=== PATIENT | female | born 1945 | race Caucasian/White ===

== ENCOUNTER → 2020-09-07 10:55 | Outpatient (CLI) | payer MEDICARE, MEDICAID, SELFPAY ==
[2020-09-07 11:43] LABS: Basophils # 0.1 K/mm3 (0-0.2); Basophils % 0.8 % (0.1-2.0); Eosinophils # 0.2 K/mm3 (0.0-0.4); Eosinophils % 3.6 % (0.1-12.0); Hematocrit 31.1 % (37.0-47.0); Lymphocytes # 1.1 K/mm3 (0.7-4.5); Lymphocytes % 18.1 % (10-50); Mean Corpuscular HGB Conc 28.9 g/dL (31.8-35.4); Mean Corpuscular Volume 86.4 fl (81-99); Mean Platelet Volume 8.4 fl (7.4-10.4); Monocytes # 0.4 K/mm3 (0.1-1.0); Monocytes % 7.2 % (1.7-9.3); Neutrophils # 4.1 K/mm3 (1.8-7.8); Neutrophils % 70.2 % (37.0-80.0); Platelet Count 417 K/mm3 (142-424); Red Cell Distribution Width 17.8 % (11.5-17.5); White Blood Count 5.9 K/mm3 (4.8-10.8)
[2020-09-07 12:28] LABS: Alanine Aminotransferase 18 U/L (12-78); Albumin Level 3.3 g/dl (3.5-5.0); Albumin/Globulin Ratio 0.9 (1.1-1.8); Alkaline Phosphatase 149 U/L (38-126); Anion Gap 13.3 mEq/L (5-15); Aspartate Amino Transferase 26 U/L (14-36); Bilirubin,Total 0.3 mg/dl (0.2-1.3); Blood Urea Nitrogen 14 mg/dl (7-17); Calcium 9.4 mg/dl (8.4-10.2); Carbon Dioxide 30 mmol/L (22.0-30.0); Chloride 99 mmol/L (98-107); Estimated Glomerular Filt Rate 82 ml/min (>60); GFR (African American) 99 ML/MIN (>60); Globulin 3.7 g/dL (1.3-3.2); Glucose 107 mg/dl (74-100); Lipase 104 U/L (23-300); Potassium 3.3 mmoL/L (3.5-5.1); Sodium 139 mmol/L (136-145)
== END ==
PROVIDERS: Visit Provider Family Medicine
DX: R10.9 Unspecified abdominal pain (principal); R63.4 Abnormal weight loss
CPT/HCPCS: 36415; 80053; 83690; 84443; 85025

== ENCOUNTER → 2020-09-17 12:22 | Outpatient (CLI) | payer MEDICARE, MEDICAID, SELFPAY ==
--- NOTE | 2020-09-17 12:27 | CT_ITS ---
PROCEDURE: CT ABDOMEN PELVIS WO CON CLINICAL INDICATION: abd pain Drainage around feeding tube COMPARISON: No exams were available for comparison TECHNIQUE: Axial images obtained with sagittal and coronal reformats. All CT scans at the facility use one or more dose reduction, viz: automated exposure control, ma/kV adjustment per patient size (including targeted exams where dose is matched to indication, i.e. head), or iterative reconstruction technique. FINDINGS: LOWER THORAX: There is a small right pleural effusion with consolidation/volume loss in the right lung base with air bronchograms. There is also some atelectatic or fibrotic change in the right middle lobe along the major fissure inferiorly. Patchy ground-glass attenuation noted in the left lower lobe with some minimal atelectatic or fibrotic changes. ABDOMEN & PELVIS: The liver, spleen, and right adrenal gland are unremarkable. There is some thickening of the left adrenal gland which is nonspecific. The gallbladder, pancreas, and kidneys have an unremarkable unenhanced appearance. There are few small periaortic lymph nodes. A PEG tube catheter is present. The tip is in the region of the body of the stomach. No abnormal fluid collections are evident around the catheter. Nonspecific bowel gas pattern. The urinary bladder is mildly distended with some minimal thickening of the wall superiorly. There is a mild amount of retained colonic feces in the rectum. There are post hysterectomy changes. There is degenerative disc disease at L5-S1. There is some faint haziness of the fat in the pelvis. This is nonspecific. There is an epidural stimulator device present at the T10-T11 region. IMPRESSION: 1. Peg tube catheter present. No evidence of abnormal fluid collection around the catheter. The catheter is in good position. 2. Right-sided pleural effusion with right lower lobe consolidation/volume loss with atelectasis or fibrosis in the right middle lobe in faint ground-glass attenuation in the left lower lobe which is nonspecific and could be inflammatory or infectious. 3. Other nonspecific findings as described above. Dictated by: Kevin Salter MD 09/18/2020 08:41 Kevin Salter MD in [place] 09/18/2020 08:41
== END ==
PROVIDERS: PCP Family Medicine; Visit Provider Family Medicine
DX: R10.9 Unspecified abdominal pain (principal)
CPT/HCPCS: 74176

== ENCOUNTER → 2021-03-24 13:21 | Outpatient (CLI) | payer MEDICARE, MEDICAID, SELFPAY ==
[2021-03-24 13:43] LABS: Basophils # 0.1 K/mm3 (0-0.2); Eosinophils # 0.2 K/mm3 (0.0-0.4); Eosinophils % 5.1 % (0.1-12.0); Hematocrit 32.9 % (37.0-47.0); Hemoglobin 10.2 g/dL (12.2-16.2); Lymphocytes # 1.1 K/mm3 (0.7-4.5); Lymphocytes % 23.5 % (10-50); Mean Corpuscular HGB Conc 31.1 g/dL (31.8-35.4); Mean Corpuscular Hemoglobin 29.5 pg (27.0-31.2); Mean Corpuscular Volume 94.9 fl (81-99); Mean Platelet Volume 10.7 fl (7.4-10.4); Monocytes # 0.3 K/mm3 (0.1-1.0); Monocytes % 6.1 % (1.7-9.3); Neutrophils # 3.1 K/mm3 (1.8-7.8); Neutrophils % 64.4 % (37.0-80.0); Platelet Count 261 K/mm3 (142-424); Red Blood Count 3.46 M/mm3 (4.20-5.40); Red Cell Distribution Width 17.2 % (11.5-17.5); White Blood Count 4.8 K/mm3 (4.8-10.8)
[2021-03-24 13:52] LABS: Alanine Aminotransferase 13 U/L (12-78); Albumin Level 3.7 g/dl (3.5-5.0); Albumin/Globulin Ratio 1.1 (1.1-1.8); Alkaline Phosphatase 147 U/L (38-126); Anion Gap 10.9 mEq/L (5-15); Aspartate Amino Transferase 27 U/L (14-36); Bilirubin,Total 0.3 mg/dl (0.2-1.3); Blood Urea Nitrogen 17 mg/dl (7-17); Calcium 9.6 mg/dl (8.4-10.2); Carbon Dioxide 32 mmol/L (22.0-30.0); Chloride 101 mmol/L (98-107); Estimated Glomerular Filt Rate 61 ml/min (>60); GFR (African American) 74 ML/MIN (>60); Globulin 3.3 g/dL (1.3-3.2); Glucose 80 mg/dl (74-100); HDL Cholesterol 62 mg/dl (40-60); Potassium 3.9 mmoL/L (3.5-5.1); Sodium 140 mmol/L (136-145)
[2021-03-24 14:04] LABS: Direct LDL Cholesterol 64.52 mg/dL (100-129)
[2021-03-24 14:09] LABS: T4 (Thyroxine) 8.2 ug/dl (5.53-11.0)
[2021-03-24 14:23] LABS: Thyroid Stimulating Hormone 7.93 uIU/mL (0.465-4.68)
[2021-03-24 14:55] LABS: Chol/HDL Ratio 2.8 (1-3.5); Cholesterol 173 mg/dl (140-200); Triglycerides 101 mg/dl (30-150); VLDL Cholesterol 20 mg/dL (0-40)
== END ==
PROVIDERS: Visit Provider Family Medicine
DX: E78.5 Hyperlipidemia, unspecified (principal); R63.4 Abnormal weight loss; Z79.899 Other long term (current) drug therapy
CPT/HCPCS: 80053; 80061; 84436; 84443; 85025

== ENCOUNTER → 2021-04-29 13:38 | Outpatient (CLI) | payer MEDICARE, MEDICAID, SELFPAY ==
[2021-04-29 13:54] LABS: Basophils # 0.1 K/mm3 (0-0.2); Basophils % 1.5 % (0.1-2.0); Eosinophils # 0.3 K/mm3 (0.0-0.4); Eosinophils % 6.5 % (0.1-12.0); Hematocrit 35.5 % (37.0-47.0); Hemoglobin 11.6 g/dL (12.2-16.2); Lymphocytes % 24.1 % (10-50); Mean Corpuscular HGB Conc 32.7 g/dL (31.8-35.4); Mean Corpuscular Hemoglobin 30.5 pg (27.0-31.2); Mean Corpuscular Volume 93.5 fl (81-99); Mean Platelet Volume 9.5 fl (7.4-10.4); Monocytes # 0.3 K/mm3 (0.1-1.0); Monocytes % 7.8 % (1.7-9.3); Neutrophils # 2.4 K/mm3 (1.8-7.8); Neutrophils % 60.1 % (37.0-80.0); Platelet Count 253 K/mm3 (142-424); Red Cell Distribution Width 15.3 % (11.5-17.5)
[2021-04-29 14:21] LABS: T4 (Thyroxine) 8.1 ug/dl (5.53-11.0)
[2021-04-29 14:34] LABS: Thyroid Stimulating Hormone 2.48 uIU/mL (0.465-4.68)
[2021-05-02 16:43] LABS: Prealbumin 19 mg/dL (9-32)
== END ==
PROVIDERS: Visit Provider Family Medicine
DX: R63.4 Abnormal weight loss (principal)
CPT/HCPCS: 84134; 84436; 84443; 85025

== ENCOUNTER → 2021-06-06 08:46 | Outpatient (POV) | payer MEDICARE, MEDICAID, SELFPAY | PROVIDERS: Visit Provider Otolaryngology | DX: Z00.00 Encounter for general adult medical examination without abnormal findings (principal) ==

== ENCOUNTER 2021-06-16 10:43 | Observation (INO) | payer MEDICARE, MEDICAID, SELFPAY ==
[2021-06-16] VITALS (18 sets, daily range): BP systolic 88–143; BP diastolic 50–76; PULSE 61–76; RESP 14–20; TEMP 36.9; O2SAT 96–100; BMI 16.7; BMI 17.2
--- NOTE | 2021-06-16 | IR_ITS ---
APPROVED REPORT Patient Location: Outpatient Custom Motorcycle Painter: LANCE Harrison RT (R) PROCEDURES Left heart catheterization Left ventriculogram Selective coronary angiogram INDICATION Unstable angina, Coronary artery disease as seen by chest x-ray Informed consent was obtained prior to the procedure. COMPLICATIONS None Estimated Blood Loss: Less than 10 mls TECHNIQUE One percent lidocaine used to anesthetize the right anterior aspect of the wrist. The right radial artery was accessed via the Seldinger technique. A 6 [place] sheath was placed in the right radial artery. 2.5 mg of verapamil, 800 mcg of nitroglycerin, 1mg Lidocaine and 5000 U Heparin were given through the arterial sheath. The trap catheter was also used to perform left heart catheterization, left ventriculogram and selective coronary angiogram. At the end of the procedure the sheath was removed good hemostasis was achieved using Traclet band, patient was transferred to the postop holding area in stable condition. ANGIOGRAPHIC RESULTS The left main artery Normal The left anterior descending artery Is widely patent in the proximal segment with concentric 20% stenosis both proximally and in the midsegment. Of interest there is significant extraluminal calcification with no significant encroachment on the intraluminal diameter The circumflex artery Nondominant with extensive extraluminal calcification with intraluminal 10 to 20% mild luminal irregularities The right coronary artery Is a large dominant vessel also with proximal and mid vessel extraluminal calcification. There is a long 30 to 40% smooth stenosis throughout the mid segment all of which is nonflow limiting The GARRIDO ventriculogram reveals Normal to hyperdynamic at 70% The left ventricular end-diastolic pressure 10 mmHg IMPRESSION Mild nonflow limiting coronary disease as described above with impressive and significant extraluminal coronary artery calcifications which are nonflow limiting and clinically insignificant at this time Hyperdynamic ventricle Normal left ventricular and SI pressure PLAN 1. Medical management 2. Patient chest pain is noncardiac in etiology Electronically signed by : Gregory Mi, 06/16/2021 14:21:24
--- NOTE | 2021-06-16 10:52 | ECG_ITS ---
APPROVED REPORT Exam: Resting ECG HR:73 bpm ECG Measurements Heart Rate 73 AXES CO 146 P 67 QRSd 64 QRS 13 QT 380 T 69 QTc 418 Conclusion Normal sinus rhythm Low voltage QRS Isolated nonsignificant Q in III noted Abnormal ECG Electronically signed by : Maksim Montana, 06/18/2021 15:25:38
--- NOTE | 2021-06-16 11:04 | XR_ITS ---
PROCEDURE: XR CHEST 2V CLINICAL HISTORY: soa COMPARISON: CT CT ABDOMEN PELVIS WO CON from 09/17/2020 FINDINGS: Focal soft tissue density is noted projecting over the right lower zone. Small right pleural effusion is noted. Hyperexpanded lungs. No other lobar consolidation or pneumothorax. Cardiac size and central pulmonary vasculature is within normal limits. Degenerative changes of the visualized thoracic spine. Right internal jugular Port-A-Cath with its tip in the superior vena cava is noted. Neural stimulator device lead tips are noted at the midthoracic spine. IMPRESSION: Focal soft tissue masslike density is noted in the right lower zone. This may represent subsegmental consolidation but lung neoplasm should be considered. No prior imaging is available for comparison. CT scan of the thorax with contrast is recommended for further evaluation if no prior history of lung neoplasm. Dictated by: Tri Frias 06/16/2021 11:52 Tri Frias in [facility] 06/16/2021 11:52
[2021-06-16 11:12] LABS: Basophils # 0.1 K/mm3 (0-0.2); Basophils % 1.2 % (0.1-2.0); Eosinophils # 0.1 K/mm3 (0.0-0.4); Eosinophils % 2.7 % (0.1-12.0); Hematocrit 35.7 % (37.0-47.0); Hemoglobin 11.1 g/dL (12.2-16.2); Lymphocytes # 0.7 K/mm3 (0.7-4.5); Lymphocytes % 15.2 % (10-50); Mean Corpuscular HGB Conc 31.1 g/dL (31.8-35.4); Mean Corpuscular Hemoglobin 29.7 pg (27.0-31.2); Mean Corpuscular Volume 95.5 fl (81-99); Mean Platelet Volume 8.1 fl (7.4-10.4); Monocytes # 0.3 K/mm3 (0.1-1.0); Monocytes % 5.8 % (1.7-9.3); Neutrophils # 3.4 K/mm3 (1.8-7.8); Neutrophils % 75.1 % (37.0-80.0); Platelet Count 220 K/mm3 (142-424); Red Blood Count 3.74 M/mm3 (4.20-5.40); Red Cell Distribution Width 15.7 % (11.5-17.5); White Blood Count 4.5 K/mm3 (4.8-10.8)
--- NOTE | 2021-06-16 11:14 | PC.NURSE ---
Pt to rad at this time.
--- NOTE | 2021-06-16 11:18 | PC.NURSE ---
Pt to x-ray via wheelchair at this time.
[2021-06-16 11:19] LABS: Anion Gap 13.1 mEq/L (5-15); Blood Urea Nitrogen 23 mg/dl (7-17); Calcium 9.5 mg/dl (8.4-10.2); Carbon Dioxide 33 mmol/L (22.0-30.0); Chloride 101 mmol/L (98-107); Creatinine Clearance Estimated 37 mL/min (50-200); Estimated Glomerular Filt Rate 70 ml/min (>60); GFR (African American) 85 ML/MIN (>60); Glucose 85 mg/dl (74-100); Potassium 4.1 mmoL/L (3.5-5.1); Sodium 143 mmol/L (136-145)
[2021-06-16 11:31] LABS: Activated Partial Thrombo Time 25.9 seconds (22.8-30.6); Prothrombin Time 11.2 seconds (10.1-12.5)
[2021-06-16 11:32] LABS: INR 0.95 (0.9-1.1)
[2021-06-16 11:36] LABS: Troponin I 0.01 ng/ml (0.00-0.034)
[2021-06-16 11:40] LABS: NT Pro Brain Natriuretic Pep. 296 pg/mL (0-125)
--- NOTE | 2021-06-16 12:16 | HMH.EDGENADL ---
ED Disposition Clinical Impression: Abnormal EKG, Shortness of breath, Coronary artery calcification Right lower lobe pneumonia Qualifiers: Pneumonia type: due to unspecified organism Qualified Code(s): J18.9 - Pneumonia, unspecified organism Disposition: Admitted As Inpatient Condition on Discharge: Fair Referrals: Andrew Quigley MD [Primary Care Provider] - - Critical Care Critical Care Time: No Attestation: On 06/16/21, the high probability of a clinically significant, sudden or life threatening deterioration of the following system(s) required my full and direct attention, intervention and personal management. The time I documented below is in addition to time spent performing reported procedures but includes the following listed in this critical care notation. Medical Decision Making - Medical Records Medical records reviewed: Yes: I reviewed the patient's medical records. - Jose Elias Inquiry Pt receiving controlled substance: No Vital Signs: 06/16/21 10:44 06/16/21 11:30 06/16/21 12:16 Temperature 98.4 F Temperature Source Oral Pulse Rate 68 71 Pulse Rate [Right] 74 Respiratory Rate 18 18 Blood Pressure 142/70 H 116/63 Blood Pressure [Right Arm] 143/62 H Blood Pressure Mean 94 81 Blood Pressure Mean [Right Arm] 89 02 Sat by Pulse Oximetry 100 99 97 Oxygen Delivery Method Room Air 06/16/21 12:58 Temperature Temperature Source Pulse Rate 69 Pulse Rate [Right] Respiratory Rate 20 Blood Pressure 124/63 Blood Pressure [Right Arm] Blood Pressure Mean 83 Blood Pressure Mean [Right Arm] 02 Sat by Pulse Oximetry 99 Oxygen Delivery Method - Lab Data Lab Results 06/16/21 11:03: WBC 4.5 L, RBC 3.74 L, Hgb 11.1 L, Hct 35.7 L, MCV 95.5, MCH 29.7, MCHC 31.1 L, RDW 15.7, Plt Count 220, MPV 8.1, Neut % (Auto) 75.1, Lymph % (Auto) 15.2, Whitfield % (Auto) 5.8, Eos % (Auto) 2.7, Baso % (Auto) 1.2, Neut # (Auto) 3.4, Lymph # (Auto) 0.7, Whitfield # (Auto) 0.3, Eos # (Auto) 0.1, Baso # (Auto) 0.1 06/16/21 11:03: Sodium 143, Potassium 4.1, Chloride 101, Carbon Dioxide 33 H, Anion Gap 13.1, BUN 23 H, Creatinine 0.80, Estimated Creat Clear 37, Estimated GFR 70, Est GFR ( Amer) 85, Glucose 85, Calcium 9.5, Troponin I 0.01 06/16/21 11:03: PT 11.2, INR 0.95, APTT 25.9 06/16/21 11:03: NT-Pro-B Natriuret Pep 296 H Result diagrams: 06/16/21 11:03 06/16/21 11:03 Orders (Tests/Meds): ED MEDICATIONS Discontinued Medications Generic Name Dose Route Start Last Admin Trade Name Freq PRN Reason Stop Dose Admin Diphenhydramine HCl 50 mg 06/16/21 13:21 Diphenhydramine 50mg/Ml Vial IV 06/16/21 13:22 ONCE ONE ORDERS Category Date Time Status Troponin I Q3H Lab 06/16/21 12:59 Received Troponin I Q3H Lab 06/16/21 17:15 Ordered - Radiology Data #1 Image(s): Chest Image Reviewed: Yes I reviewed the patient's radiology results, Yes I reviewed the patient's radiology image, Yes I have reviewed radiologist's interpretation IMPRESSION: Focal soft tissue masslike density is noted in the right lower zone. This may represent subsegmental consolidation but lung neoplasm should be considered. No prior imaging is available for comparison. CT scan of the thorax with contrast is recommended for further evaluation if no prior history of lung neoplasm. - ECG Data Tracing #1 No ventricular rate is 73 bpm, normal NE interval, normal QTC. Sinus rhythm with nonspecific ST changes. ECG initial impression date: 06/16/21 ECG initial impression time: 10:52 - Reevaluation(s) Time: 13:29 Reevaluation #1: On reevaluation, patient is feeling better. Cardiology did evaluate the patient. They have arranged for the patient to obtain cardiac catheterization given her significant coronary calcifications and intermittent chest pain. Patient be admitted to hospital for further evaluation and treatment. - KALI Score for Non-Stemi Age of Patient: 70-79 years old Hear
--- NOTE | 2021-06-16 13:09 | PC.NURSE ---
cardiology MACHINE ADJUSTER LEADER at bedside.
--- NOTE | 2021-06-16 13:19 | PC.NURSE ---
Dr Welch speaking with Dr Quigley
--- NOTE | 2021-06-16 13:22 | CA_ITS ---
APPROVED REPORT EXAM: Comprehensive 2D, Doppler, and color-flow Echocardiogram Historical Records Administrator: Kenyetta Romero RVT Ht: 5 ft 6 in Wt: 104lbs BSA: 1.51 BP: 143/62 mmHg Indications: ANGINA,HTN,SOA,EX SMOKER,HLD,HC SUPRAGLOTTIC CANCER WITH PRIOR CHEMO,ABN EKG,HOME 02 TDS-PT FLAT ON BACK POST CATH 2D Dimensions LVOT 2.07 cm (M/F) 1.5-2.5 M-Mode Dimensions RVDd 2.79 cm (0.9-2.6) LA Diam 2.56 cm (1.9-4.0) LVDd 3.51 cm (3.5-5.7) Ao Diam 2.87 cm (2.0-3.7) LVDs 2.01 cm (3.5-5.7) IVSd 0.69 cm (0.6-1.1) PWd 0.94 cm (0.6-1.1) EF (Teich) 74.80% FS 42.70% EDV (Teich) 51.20 mL ESV (Teich) 12.90 mL LV Diastology E Decel Time 363.00 (160-240 msec) E/A Ratio 1.2 Aortic Valve AO Peak GR. 3.40 mmHg Mitral Valve MV E Max Luis. 111.00 (40-130 cm/s) MV A Velocity 94.00 (40-130 cm/s) E/A Ratio 1.18 MV Decel. Time 363.00 (160-240 ms) MV PHT 106.00 ms Pulmonary Valve PV Peak Velocity 87.00 (50-150 cm/s) Tricuspid Valve TR P. Velocity 249.00 cm/s RAP Estimate 10.00 mmHg RVSP 34.80 mmHg Left Ventricle Technically difficult study. Left atrium is mildly enlarged, left ventricle is normal size, visually estimated ejection fraction 55% with no regional wall motion abnormality, diastolic parameters are inconclusive. Right Ventricle Right atrium and right ventricle mildly enlarged with normal contractility. Aortic Valve Aortic valve is thickened and calcified without aortic stenosis or aortic insufficiency. Mitral Valve Mitral valve has dense mitral annular calcification which extends in both anterior and posterior mitral leaflet. There is no mitral stenosis, there is mild mitral regurgitation. Tricuspid Valve Tricuspid valve grossly normal, there is moderate tricuspid regurgitation, calculated right ventricular systolic pressure 35 mmHg. Pulmonic Valve Pulmonic valve is poorly visualized. Great Vessels Aortic root is normal size. Pericardium No significant pericardial effusion noted. Conclusion 1. Biatrial enlargement, normal left ventricular size, mild concentric left ventricular hypertrophy, visually estimated ejection fraction 55% with no regional wall motion abnormality, diastolic parameters are inconclusive. 2. Mildly enlarged right ventricle with normal contractility. 3. Thickened and calcified aortic valve without aortic stenosis or aortic insufficiency. 4. Mild mitral and moderate tricuspid regurgitation, calculated right ventricular systolic pressure 35 mmHg. 5. No significant pericardial effusion noted. Electronically signed by : Raymond Lux, 06/16/2021 15:58:31
--- NOTE | 2021-06-16 13:23 | HMH.CNCARD ---
History of Present Illness Consult date: 06/16/21 Requesting physician: Markus Welch Consult reason: chest pain Chief complaint: chest pain History of present illness: This is a 75-year-old white female who presented to the emergency department with complaints of chest pain. The patient states that approximately 2 days ago she started having a substernal chest pressure. The patient states that it feels like a heavy piece of iron is sitting on her chest. She states that this radiates to her bilateral arms and causes numbness. The patient states it is associated with shortness of breath and nausea as well as diaphoresis. She states that this is severe and sometimes she feels like she is gasping for breath because her chest pain is so bad. The patient states that this occurs intermittently and occurs at rest and with exertion. Nothing really helps to improve the pain. She states that she is on home oxygen and the whole oxygen was not helping with the pain or her shortness of breath. She states that she has never experienced symptoms like this before. 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 She denies any fever, chills, vomiting, diarrhea, PND or orthopnea. [facility] History I have reviewed the patient's past medical history: Yes Medical History: Reports:: Anxiety, Asthma, Depression, Hyperlipidemia, Hypertension *Have you ever received a pneumonia vaccine?: Yes *Have you received a flu vaccine this season?: No - *Social History Smoking Status: Former smoker # Packs/Day (cigarettes): 5 Alcohol Intake: former *Occupational Status:: retired, disabled Household Members: none *Travel in the last 8 weeks: None - Psychiatric History Pschychiatric History:: Reports:: Anxiety, Depression Family Hx:: No significant family history Meds Home Medications Medication Instructions Recorded Confirmed Type cholestyramine (with sugar) 4 gram 4 g PO BID PRN #30 each 05/26/20 06/16/21 Rx powder for susp in a packet albuterol sulfate 90 mcg/actuation 2 inh INHALATION Q4-6H PRN #1 each 09/07/20 06/16/21 Rx breath activated powder inhaler celecoxib 200 mg capsule 200 mg PO DAILY #90 cap 09/07/20 06/16/21 Rx cyanocobalamin (vitamin B-12) 1,000 mcg IM QMONTH #100 ml 09/07/20 06/16/21 Rx 1,000 mcg/mL injection solution nitrofurantoin macrocrystal 50 mg 50 mg PO QHS #90 cap 09/07/20 06/16/21 Rx capsule quetiapine 25 mg tablet 25 mg PO BID #180 tab 09/07/20 06/16/21 Rx sertraline 20 mg/mL oral 20 mg PO DAILY #60 ml 09/07/20 06/16/21 Rx concentrate pantoprazole 40 mg tablet,delayed 40 mg PO DAILY #30 tab 09/10/20 06/16/21 Rx release atorvastatin 40 mg tablet 40 mg PO DAILY #90 tab 09/20/20 06/16/21 Rx aspirin 81 mg tablet,delayed 81 mg PO DAILY 03/24/21 06/16/21 History release diaper,brief,adult,disposable See Rx Instructions .ROUTE 03/24/21 06/16/21 Rx .MEDSUPPLY #96 each dicyclomine 10 mg capsule 10 mg PO DAILY cap 03/24/21 06/16/21 History donepezil 10 mg tablet 10 mg PO DAILY 03/24/21 06/16/21 History guar gum 1 tbsp PO TID PRN #820 g 03/24/21 06/16/21 Rx levothyroxine 88 mcg capsule 88 mcg PO DAILY #90 cap 03/25/21 06/16/21 Rx diphenoxylate-atropine 2.5 1 tab PO BID PRN #60 tab 04/07/21 06/16/21 Rx mg-0.025 mg tablet alendronate 35 mg tablet 35 mg PO WEEKLY #14 tab 04/29/21 06/16/21 Rx ergocalciferol (vitamin D2) 1,250 1,250 mcg PO QWEEK #7 cap 04/29/21 06/16/21 Rx mcg (50,000 unit) capsule ondansetron HCl 4 mg tablet 4 mg PO Q6H PRN #30 tab 04/29/21 06/16/21 Rx diazepam 5 mg/5 mL (1 mg/mL) oral 5 mg PO BID #300 ml 06/16/21 06/16/21 Rx solution levofloxacin 500 mg tablet 500 mg PO DAILY 10 Days #10 tab 06/16/21 06/16/21 Rx nystatin 100,000 unit/mL oral 5 ml BUCCAL QID #500 ml 06/16/21 06/16/21 Rx suspension oxycodone 5 mg/5 mL oral solution 5 mg PO Q4H PRN #473 ml 06/16/21 06/16/21 Rx pantoprazole 40 mg granules 40 mg PO DAILY #30 each 06/16/21
--- NOTE | 2021-06-16 13:27 | PC.NURSE ---
Cardiac cath consent signed, pt in gown only, belongings given to at bedside.
--- NOTE | 2021-06-16 13:32 | PC.NURSE ---
Marisol Troy RN here to take pt to dental laboratory technician apprentice.
[2021-06-16 13:36] LABS: Troponin I < 0.01 ng/ml (0.00-0.034)
--- NOTE | 2021-06-16 14:00 | PC.NURSE ---
Report called to Ronnie NAIR.
--- NOTE | 2021-06-16 15:53 | PC.NURSE ---
1530 - REPORT RECEIVED FORM JOANIE SALAZAR
--- NOTE | 2021-06-16 17:44 | PC.NURSE ---
Radial band removed as follow: 1615 - 2ML REMOVED 1630 - 2ML REMOVED 1645 - 2ML REMOVED 1700 - 2ML REMOVED 1715 - 2ML REMOVED 1730 - 2ML REMOVED 1744 - RADIAL BAND REMOVED; TELFA AND TEGADERM PLACED; NO S/S OF HEMATOMA; PT TOLERATED WELL; DR ACEVEDO AT BEDSIDE
--- NOTE | 2021-06-16 17:47 | HMH.HPDC ---
General - General Admission date:: 06/16/21 Discharge date: 06/16/21 *Admission Date: 06/16/21 *Chief complaint: chest pain *History of present illness: Patient is a 75-year-old white female, known to me from the office. Patient has a history of a supraglottic neoplasm, was seen in consultation by Dr. Deluna at the [facility]. She underwent a sequence of external beam radiation to the neck. No surgery was performed. She is followed by an ENT in [place], Dr. Sanford, who has expressed concern over recurrence of the neoplasm. Further work-up is underway. She has extensive skin changes, thickening, from the XRT and I am unable to palpate any masses in the neck. My understanding is that she is slated for a PET scan in the near future. Patient is followed by a access developer in [facility], . He performed a CT lung cancer screening on 06/08/2021. Showed development of a new masslike opacity in the right lower lobe abutting the pleural surface with some air bronchograms. It measures 15 mm x 40 mm x 46 mm. It has both masslike appearance as well as an infiltrative appearance. The margins are ill-defined. Patient presented to my office earlier this morning with complaints of cough, scant purulence and substernal chest pain. Her CT was reviewed, and in the office she was given 1 g of Rocephin and 500 mg p.o. Levaquin daily was called in for 10 days. Patient had also reported a 7-hour sewed of substernal chest pain on Sunday night. She felt the pain radiated into her neck, and this was associated with a sensation of numbness in both upper extremities. It was noted on the previous CAT scan that her coronary arteries were heavily calcified. He was also found to have cardiomegaly. As we spoke the patient expressed significant concern about the substernal chest pain and felt that she may have had a coronary event. She was sent to the cardiology office for further evaluation, subsequently sent to the Spa Experience Coordinator. Troponins were negative, her chest film showed an a process in the right lower lobe. Dr. Mi was kind enough to see and evaluate the patient for us. [facility] History Medical History: Reports:: Anxiety, Asthma, Cancer (NECK), Depression, Hyperlipidemia, Hypertension Denies:: Diabetes Mellitus Type 1, Diabetes Mellitus Type 2, Internal Pacemaker *Have you ever received a pneumonia vaccine?: Yes *Have you received a flu vaccine this season?: Yes Other Medical History: Reports: Arthritis, Chemotherapy, Radiation Therapy Other Surgeries: Yes: Cardiac Catheterization. No: Pacemaker - *Social History Smoking Status: Former smoker Tobacco Type: cigarettes # Packs/Day (cigarettes): 5 Alcohol Intake: former *Occupational Status:: disabled Household Members: spouse *Travel in the last 8 weeks: None - Psychiatric History Pschychiatric History:: Reports:: Anxiety, Depression Family Hx:: No significant family history Review of Systems - Constitutional Reports anorexia, Reports lack of energy - Eyes Denies change in vision - ENT Reports difficulty swallowing, Reports hoarseness, Denies abnormal hearing - *Cardiovascular Reports chest pain, Reports shortness of breath - *Respiratory Reports change in phlegm color - *Gastrointestinal Reports difficulty swallowing, Denies abdominal pain, Denies heartburn - *Genitourinary Denies painful urination - *Musculoskeletal Reports joint pain, Reports decreased muscle mass, Reports muscle weakness - Integumentary/Breasts Reports other, Denies yellowing of the skin Comments: xrt changes - *Neurologic Reports weakness, Denies headache(s) - Psychiatric Reports lack of enjoyment - Endocrine Denies cold intolerance, Denies excessive sweating, Denies increased hunger - Hematologic/Lymphatic Denies easy bleeding - Allergic/Immunologic Denies hives Exam Vital signs and Labs for Last 24 Hours: Temp Pulse Resp BP Pulse Ox 98.4 F 64
--- NOTE | 2021-06-16 18:26 | PC.NURSE ---
PT WAS D/C AT 182
== END 2021-06-16 18:25 | disposition home or self-care (01) ==
LOC: ER 13:32 → CATHLAB 13:35 → 2ND 13:54
PROVIDERS: Admitting Provider Family Medicine; Emergency Provider Emergency Medicine; PCP Family Medicine; Visit Provider Internal Medicine
DX: I25.110 Atherosclerotic heart disease of native coronary artery with unstable angina pectoris (principal); I10 Essential (primary) hypertension; J44.9 Chronic obstructive pulmonary disease, unspecified; Z99.81 Dependence on supplemental oxygen; E03.9 Hypothyroidism, unspecified; Z79.899 Other long term (current) drug therapy
CPT/HCPCS: 71046; 80048; 83880; 84484; 85025; 85610; 85730; 93005; 93306; 93458; 99152; 99284; C1725; C1769; G0378; J1644

== ENCOUNTER → 2021-08-08 09:42 | Outpatient (CLI) | payer MEDICARE, MEDICAID, SELFPAY ==
--- NOTE | 2021-08-08 09:42 | MM_ITS ---
PROCEDURE INFORMATION: Exam: Bilateral Screening 3D Mammography Exam date and time: 08/08/2021 9:42 AM Age: 75 years old Clinical indication: screening mammogram TECHNIQUE: Imaging protocol: Bilateral screening tomosynthesis and 2D mammography including computer-aided detection (CAD) when performed. COMPARISON: No relevant prior studies available. FINDINGS: MAMMOGRAPHY: Breast composition: The breast tissue is extremely dense, limiting the sensitivity of mammography. Mass: Mass within the upper outer left middle 1/3 measuring 12 mm should be further assessed with spot views in CC/MLO projection. Ultrasound should also be performed. Architectural distortion: No new or suspicious architectural distortion. Calcifications: No new or suspicious calcifications are present Asymmetric density: No new or suspicious asymmetric density is present Skin thickening: None. Axillary adenopathy: None. IMPRESSION: Mass within the upper outer left middle 1/3 measuring 12 mm should be further assessed with spot views in CC/MLO projection. Ultrasound should also be performed. ASSESSMENT: BI-RADS category 0: Incomplete-need additional imaging evaluation and/or prior mammograms for comparison.
== END ==
PROVIDERS: PCP Family Medicine; Visit Provider Family Medicine
DX: Z12.31 Encounter for screening mammogram for malignant neoplasm of breast (principal)
CPT/HCPCS: 77063; 77067

== ENCOUNTER → 2021-09-12 14:33 | Outpatient (CLI) | payer MEDICARE, MEDICAID, SELFPAY ==
--- NOTE | 2021-09-12 14:33 | US_ITS ---
PROCEDURE: MM DIG MAMM DX UNILAT LT CAD Digital Breast Tomosynthesis Included ULTRASOUND LEFT BREAST COMPLETE CLINICAL INDICATION: abn mamm Follow-up abnormal screening exam COMPARISON: MG MM MAMMO DIGITAL CT DIAGN BILAT from 02/17/[address] SCREEN BILAT from 06/07/2020 MG MM DIG SCREENING MAMM BI W/CAD from 08/08/2021 US US BREAST LT COMPLETE from 09/12/2021 TECHNIQUE: Standard CC and MLO images and 3D Tomosynthesis was obtained. R2 CAD reviewed. FINDINGS: The area of asymmetric density in the upper aspect of the left breast appears to mostly compress and may represent fibroglandular tissue. No spiculated nodule evident. There is some minimal residual increased density in this region however. No malignant mass or malignant-appearing microcalcification. Left breast ultrasound: No cystic or solid lesions evident. IMPRESSION: Probably benign findings. Recommend six-month mammographic follow-up. BI-RAD Category: 3 Probably Benign Finding Short Term Follow-Up FOLLOW-UP: 6M 6 Month Follow-up (A letter has been sent to the patient regarding results of the study.) Dictated by: Kevin Salter MD 09/14/2021 14:35 Kevin Salter MD in [place] 09/14/2021 14:35
== END ==
PROVIDERS: PCP Family Medicine; Visit Provider Family Medicine
DX: R92.8 Other abnormal and inconclusive findings on diagnostic imaging of breast (principal)
CPT/HCPCS: 76641; 77061; 77065; G0279

== ENCOUNTER → 2021-10-04 09:18 | Outpatient (CLI) | payer MEDICARE, MEDICAID, SELFPAY ==
--- NOTE | 2021-10-04 09:22 | CT_ITS ---
PROCEDURE: CT ABDOMEN PELVIS W CON CLINICAL INDICATION: abd pain COMPARISON: CT CT ABDOMEN PELVIS WO CON from 09/17/2020 TECHNIQUE: IV Contrast: 75ML Isovue 370 Oral Contrast Gastroview Axial images obtained with sagittal and coronal reformats. All CT scans at the facility use one or more dose reduction, viz: automated exposure control, ma/kV adjustment per patient size (including targeted exams where dose is matched to indication, i.e. head), or iterative reconstruction technique. FINDINGS: LOWER THORAX: Atelectatic changes in the lung bases. Artifact from cardiac pacemaker device.. ABDOMEN & PELVIS: The liver has an unremarkable appearance. There is mild distention of the gallbladder. The gallbladder is elongated measuring 9 cm in and 3 cm in with. The spleen, adrenal glands, and pancreas have an unremarkable appearance aside from pancreatic atrophy.. Percutaneous gastrostomy tube is present. The bulb is in the region of the duodenal bulb. No renal or ureteral calculi. No hydronephrosis. No intestinal obstruction or free air. The appendix is not clearly delineated. No evidence of appendicitis or diverticulitis. There is a mild amount of retained colonic feces in the rectosigmoid region. Post hysterectomy changes. Degenerative disc disease is present at L3-L4 L4-5 and L5-S1. IMPRESSION: 1. Mild distention of the gallbladder. 2. Percutaneous gastrostomy tube present with the bulb insufflated in the region of the duodenal bulb 3. Other nonacute findings as described above. Dictated by: Kevin Salter MD 10/05/2021 09:27 Kevin Salter MD in [place] 10/05/2021 09:27
[2021-10-04 10:20] LABS: Anion Gap 7.4 mEq/L (5-15); Blood Urea Nitrogen 23 mg/dl (7-17); Calcium 9.3 mg/dl (8.4-10.2); Carbon Dioxide 37 mmol/L (22.0-30.0); Chloride 100 mmol/L (98-107); Estimated Glomerular Filt Rate 82 ml/min (>60); GFR (African American) 99 ML/MIN (>60); Glucose 93 mg/dl (74-100); Potassium 4.4 mmoL/L (3.5-5.1); Sodium 140 mmol/L (136-145)
== END ==
PROVIDERS: PCP Family Medicine; Visit Provider Family Medicine
DX: R10.9 Unspecified abdominal pain (principal); Z01.818 Encounter for other preprocedural examination
CPT/HCPCS: 36415; 74177; 80048; J1642; Q9967

== ENCOUNTER → 2021-11-25 15:19 | Outpatient (CLI) | payer MEDICARE, MEDICAID, SELFPAY ==
--- NOTE | 2021-11-25 15:26 | CT_ITS ---
PROCEDURE INFORMATION: Exam: CT Chest Without Contrast; Diagnostic Exam date and time: 11/25/2021 3:26 PM Age: 76 years old Clinical indication: Abnormal findings; Lung mass or nodule; Not specified; Additional info: Follow up mass lesion in right lower region TECHNIQUE: Imaging protocol: Diagnostic computed tomography of the chest without contrast. Radiation optimization: All CT scans at this facility use at least one of these dose optimization techniques: automated exposure control; mA and/or kV adjustment per patient size (includes targeted exams where dose is matched to clinical indication); or iterative reconstruction. COMPARISON: CR XR CHEST 2V 06/16/2021 11:13 AM FINDINGS: Tubes, catheters and devices: Intrathecal electrodes. Lungs: Small amount of airspace consolidation in the upper portion of the left lower lobe. Small amount of airspace consolidation in both lower lobes. 7 mm calcified granuloma in the upper lobe of the right lower lobe. Other smaller calcified granulomas in both lungs. Pulmonary hyperexpansion, similar to previous. Pleural spaces: Unremarkable. No pneumothorax. No pleural effusion. Heart: Unremarkable. No cardiomegaly. No pericardial effusion. Aorta: Unremarkable. No aortic aneurysm. Lymph nodes: Unremarkable. No enlarged lymph nodes. Bones/joints: Unremarkable. No acute fracture. Soft tissues: Unremarkable. IMPRESSION: 1. Small amount of airspace consolidation in the upper portion of the left lower lobe and in the right lower lobe may represent pneumonia or atelectasis. 2. No other acute changes in the chest. 3. Pulmonary hyperexpansion is consistent with chronic obstructive pulmonary disease.
== END ==
PROVIDERS: PCP Family Medicine; Visit Provider Family Medicine
DX: R91.8 Other nonspecific abnormal finding of lung field (principal)
CPT/HCPCS: 71250

== ENCOUNTER → 2021-12-05 11:05 | Outpatient (CLI) | payer MEDICARE, MEDICAID, SELFPAY ==
--- NOTE | 2021-12-05 11:07 | CA_ITS ---
FINAL REPORT TECHNIQUE: Color Doppler, duplex Doppler and singh scale sonography of the bilateral neck arterial vasculature was performed. Velocities were measured in the carotid arteries. Stenosis evaluation based on the validated velocity criteria. CLINICAL HISTORY: .LT BRUIT,HTN,HLD,CAD,EX SMOKER,HX NECK CANCER FINDINGS: The peak systolic velocity of the right common carotid artery is 50 cm/s. The peak systolic velocity of the right internal carotid artery is 200 cm/s and end diastolic velocity 32 cm/s. The right external carotid artery is patent. The right vertebral artery is patent with antegrade flow. The peak systolic velocity of the left common carotid artery is 56 cm/s. The peak systolic velocity of the left internal carotid artery is 142 cm/s and end diastolic velocity 26 cm/s. The left external carotid artery is patent.The left vertebral artery is patent with antegrade flow. IMPRESSION: Moderate- large plaque consistent with 50-69 % bilateral carotid stenosis. If indicated CTA or MRA may be helpful. Bilateral patent vertebral arteries with antegrade flow. Reviewed, Interpreted and Dictated by Sterling Farias III, MD Transcribed by Elisabeth Kenny Authenticated by Sterling Farias III, MD on 12/05/2021 01:24:32 PM [facility]
== END ==
PROVIDERS: PCP Family Medicine; Visit Provider Nurse Practitioner Family
DX: E78.2 Mixed hyperlipidemia (principal); I25.118 Atherosclerotic heart disease of native coronary artery with other forms of angina pectoris; I27.20 Pulmonary hypertension, unspecified; R06.02 Shortness of breath; R09.89 Other specified symptoms and signs involving the circulatory and respiratory systems; R60.0 Localized edema; R00.2 Palpitations
CPT/HCPCS: 93270; 93880

== ENCOUNTER 2021-12-12 09:56 | Day surgery (SDC) | payer MEDICARE, MEDICAID, SELFPAY ==
[2021-12-12] VITALS (8 sets, daily range): BP systolic 101–139; BP diastolic 57–87; PULSE 72–97; RESP 12–19; TEMP 36.8; O2SAT 90–95; BMI 16.2
--- NOTE | 2021-12-12 | IR_ITS ---
APPROVED REPORT Patient Location: Outpatient Paste Thinner: LANCE Alexander RT (R) PROCEDURES 1. Pocket formation for Permanent Pacemaker Placement. 2. Placement of an atrial sensing and pacing coil into the right atrial appendage. 3. Placement of a ventricular sensing and pacing coil in the right ventricular apex. 4. Permanent Pacemaker Placement. INDICATION Symptomatic Bradycardia Informed consent was obtained prior to the procedure. COMPLICATIONS None Estimated Blood Loss: Less than 10 ML TECHNIQUE 1% Lidocaine with epinephrine used to anesthetized the left anterior aspect of the chest. Scalpel was used to make the initial cutaneous incision while electrocautery was used to dissect down tinto the fascia. The fascia was lifted off the pectoralis muscle and digitally manipulated creating a pocket for the pacemaker. The patient was then placed in Trendelenburg position and the subclavian vein was accessed twice via the Selinger technique, there are two wires in the vein. A 6 Palestinian sheath was placed under fluoroscopic guidance into the subclavian vein over one of the wires while keeping the other wire in place within the subclavian vein. The dilator was removed from the sheath. Using fluoroscopic guidance, the ventricular lead was placed into the right ventricular apex, screwed and secured into place. Electronic interrogation proved acceptable thresholds and voltage within the lead. Using 3-0 silk, the ventricular lead was then secured into place. Lead was secured to the facia using the 3-0 silk. Following this, the sheath was pealed away. An additional 6 Palestinian fresh sheath and dilator was placed over the existing wire. Using fluoroscopic guidance, the atrial lead was the placed into the right atrial appendage and screwed and secured in place. Electrical interrogation demonstrated acceptable thresholds and voltage number. The atrial lead was then secured into place using 3-0 silk. 1 gram of Ancef was used to flush the pocket. Following the pacemaker generator being secured to the fascia and in place, Monocryl was used to close the subcutaneous layers while shirley were used to close the cutaneous layer. A pressure dressing was placed and the patient was transferred to the postop holding area in stable condition for postoperative care. INTERROGATION Generator Model number: [employer] Safety Step MRI DR IS-1 L311 Generator Serial number: [id number] Atrial lead model number: Ingevity + IS-1 Bi Positive Fix RA/RV 45 CM 7840 Atrial lead serial number: [id number] P-wave: 2.5 mV Impedence: 450 Ohms Threshold: 1.0V@0.4 ms Current: 2.3 mA Right Ventricular lead model number: Ingevity + IS-1 Bi Positive Fix RA/RV 52 cm 7841 Right Ventricular lead serial number: [id number] R-wave: 6.5 mV Impedence: 783 ohms Threshold: 0.7V@0.4ms Pacing Parameters: Mode: DDDR Base/Max Track: 60 ppm/ 130 ppm No diaphragmatic stimulation at 10 volts. IMPRESSION 1. Successful Pocket formation for Permanent Pacemaker Placement. 2. Successful Placement of an atrial sensing and pacing coil into the right atrial appendage. 3. Successful Placement of a ventricular sensing and pacing coil in the right ventricular apex. 4. Successful Permanent Pacemaker Placement. PLAN 1. Post Op Wound Care. Electronically signed by : Gregory Mi MD 12/12/2021 15:32:04
--- NOTE | 2021-12-12 10:07 | XR_ITS ---
FINAL REPORT TECHNIQUE: Single view chest CLINICAL HISTORY: Confirm pacemaker/AID placement COMPARISON: 06/16/2021 FINDINGS: A single view of the chest was obtained. There has been interval placement of a left subclavian pacemaker. Right chest port is unchanged. The heart and mediastinum are within normal limits. There is been interval resolution of previously seen right basilar opacity. The lungs are clear. There is no pneumothorax. Osseous structures are unremarkable. IMPRESSION: Interval placement of left subclavian pacemaker. No pneumothorax. Reviewed, Interpreted and Dictated by Sterling Farias III, MD Transcribed by Delfina Batista Authenticated by Sterling Farias III, MD on 12/12/2021 02:50:14 PM [facility]
[2021-12-12 10:52] LABS: Coronavirus 19, PCR Not Detected (NotDetected); Influenza A, PCR Not Detected (NotDetected); Influenza B, PCR Not Detected (NotDetected)
[2021-12-12 10:59] LABS: Basophils # 0.1 K/mm3 (0-0.2); Basophils % 1.3 % (0.1-2.0); Eosinophils # 0.2 K/mm3 (0.0-0.4); Eosinophils % 3.1 % (0.1-12.0); Hematocrit 31.8 % (37.0-47.0); Hemoglobin 9.8 g/dL (12.2-16.2); Lymphocytes % 18.2 % (10-50); Mean Corpuscular HGB Conc 30.8 g/dL (31.8-35.4); Mean Corpuscular Hemoglobin 30.7 pg (27.0-31.2); Mean Corpuscular Volume 99.7 fl (81-99); Mean Platelet Volume 10.4 fl (7.4-10.4); Monocytes # 0.4 K/mm3 (0.1-1.0); Monocytes % 7.9 % (1.7-9.3); Neutrophils # 3.6 K/mm3 (1.8-7.8); Neutrophils % 69.5 % (37.0-80.0); Platelet Count 186 K/mm3 (142-424); Red Blood Count 3.19 M/mm3 (4.20-5.40); Red Cell Distribution Width 14.2 % (11.5-17.5); White Blood Count 5.2 K/mm3 (4.8-10.8)
[2021-12-12 11:10] LABS: Blood Urea Nitrogen 23 mg/dl (7-17); Chloride 96 mmol/L (98-107); Creatinine Clearance Estimated 35 mL/min (50-200); Estimated Glomerular Filt Rate 61 ml/min (>60); GFR (African American) 74 ML/MIN (>60); Potassium 3.3 mmoL/L (3.5-5.1); Sodium 139 mmol/L (136-145)
[2021-12-12 11:11] LABS: Calcium 9.2 mg/dl (8.4-10.2); Glucose 116 mg/dl (74-100)
[2021-12-12 11:17] LABS: Anion Gap 8.3 mEq/L (5-15); Carbon Dioxide 38 mmol/L (22.0-30.0)
--- NOTE | 2021-12-12 12:29 | HMH.ANESCL ---
[facility] Anesthesia Checklist - Patient Identification Patient Identification: Arm Band - Structural Data Admitted From: Home Planned Operative Procedure/s: Dual Chamber Pacemaker Consent for Planned Operative Procedure(s) Verified: Yes Verified Documents: Surgical Consent, History and Physical - NPO Status Verified Time NPO: 00:00 - Additional verifications Anesthesia Reactions: No - Airway Assessment C-Spine Mobility Assessed: Yes (mp2) TMJ Mobility Assessed: Yes Dentition: Good Dentition - Neurological Assessment Level of Consciousness: Awake, Alert - Anesthesia Plan Anesthesia Risk discussed: Yes Anesthesia Plan: Verified ASA Class: III Anesthesia Type: MAC [facility] History I have reviewed the patient's past medical history: Yes Medical History: Reports:: Anxiety, Asthma, Cancer, Chronic Obstructive Pulmonary Disease (COPD), Depression, Hyperlipidemia, Hypertension Denies:: Diabetes Mellitus Type 1, Diabetes Mellitus Type 2, Internal Pacemaker, Seizures *Have you ever received a pneumonia vaccine?: Yes *Have you received a flu vaccine this season?: Yes Other Medical History: Reports: Arthritis, Chemotherapy, Radiation Therapy Anesthesia experience/problems:: nac Other Surgeries: Yes: Cardiac Catheterization, Colonoscopy. No: Pacemaker - *Social History Last grade of school completed: High school graduate Smoking Status: Former smoker Tobacco Type: cigarettes # Packs/Day (cigarettes): 5 Alcohol Intake: never Substance Use Type: denies use *Occupational Status:: retired Housing: house Household Members: spouse *Travel in the last 8 weeks: None - Psychiatric History Pschychiatric History:: Reports:: Anxiety, Depression Family Hx:: No significant family history
--- NOTE | 2021-12-12 14:07 | SUR.PHASEII ---
PT BECOMING COMBATIVE AND SCREAMING AT STAFF SAYING SHE WANTS TO SEE HER . EDUCATED PT DUE TO COVID RESTRICTION NO VISITORS MAY ENTER THE CATHLAB. PT UPDATED ON PT RECOVERY.
--- NOTE | 2021-12-12 14:20 | SUR.PHASEII ---
PT STATES SHE WOULD LIKE TO SPEAK TO HER , GAVE HER THE UNIT PHONE TO CALL HER , PT ON PHONE WITH AT THIS TIME
--- NOTE | 2021-12-12 14:25 | SUR.PHASEII ---
SPOKE TO ABOUT PT CARE.
--- NOTE | 2021-12-12 14:30 | SUR.PHASEII ---
NOTIFIED PT THAT WE ARE WAITING FOR THE CHEST XRAY TO BE READ AND THEN STATED SHE MAY BE DISCHARGE
== END 2021-12-12 15:07 | disposition home or self-care (01) ==
LOC: CATHLAB 09:58
PROVIDERS: PCP Family Medicine; Visit Provider Internal Medicine
DX: I49.5 Sick sinus syndrome (principal); I44.2 Atrioventricular block, complete; I27.20 Pulmonary hypertension, unspecified; I25.118 Atherosclerotic heart disease of native coronary artery with other forms of angina pectoris; E03.9 Hypothyroidism, unspecified; Z79.899 Other long term (current) drug therapy
CPT/HCPCS: 33208; 71045; 80048; 85025; C1785; C1898; C9803; J1642; U0003; U0005

== ENCOUNTER → 2022-03-14 14:05 | Outpatient (CLI) | payer MEDICARE, MEDICAID, SELFPAY ==
--- NOTE | 2022-03-14 14:05 | US_ITS ---
PROCEDURE INFORMATION: Exam: US Left Breast, Complete MG Left Diagnostic Breast Tomosynthesis Exam date and time: 03/14/2022 2:45 PM Age: 76 years old Clinical indication: Short-term follow-up was recommended on 09/12/21 to assess stability of sonographically occult upper left middle 1/3 asymmetry TECHNIQUE: Imaging protocol: Complete ultrasound of all four quadrants of the Left breast and the retroareolar regions, including ultrasound of the axilla when performed. Left Diagnostic tomosynthesis and 2D mammography including computer-aided detection (CAD) when performed. Unilateral or bilateral exam. COMPARISON: 1. MG MM DIG MAMM DX UNILAT LT CAD 09/12/2021 2:34 PM 2. US BREAST LT COMPLETE 09/12/2021 2:55 PM 3. MG MM DIG SCREENING MAMM BI W/CAD 08/08/2021 9:48 AM 4. MG MM MAMMO DIGITAL CT SCREEN BILAT 06/07/2020 10:46 AM FINDINGS: MAMMOGRAPHY: The breast tissue is extremely dense, limiting the sensitivity of mammography. No mass, architectural distortion, or suspicious calcifications have developed to suggest malignancy. No axillary adenopathy. ULTRASOUND: Ultrasound assessment of the entire left breast including axilla and retroareolar region No suspicious solid or cystic mass is present. No benign-appearing solid or cystic mass is present. No architectural distortion or shadowing is present. No axillary adenopathy is present. IMPRESSION: No mammographic or sonographic evidence of malignancy. Recommend annual screening mammography unless otherwise clinically indicated. ASSESSMENT: BI-RADS category 1: Negative
== END ==
PROVIDERS: PCP Family Medicine; Visit Provider Family Medicine
DX: R92.8 Other abnormal and inconclusive findings on diagnostic imaging of breast (principal)
CPT/HCPCS: 76641; 77061; 77065; G0279

== ENCOUNTER → 2023-02-22 11:26 | Outpatient (CLI) | payer MEDICARE, MEDICAID, SELFPAY ==
[2023-02-22 16:26] LABS: Basophils % 0.9 % (0.1-2.0); Eosinophils # 0.2 K/mm3 (0.0-0.4); Eosinophils % 3.5 % (0.1-12.0); Hematocrit 37.8 % (37.0-47.0); Hemoglobin 11.5 g/dL (12.2-16.2); Lymphocytes # 0.9 K/mm3 (0.7-4.5); Mean Corpuscular HGB Conc 30.5 g/dL (31.8-35.4); Mean Corpuscular Hemoglobin 29.1 pg (27.0-31.2); Mean Corpuscular Volume 95.3 fl (81-99); Mean Platelet Volume 11.7 fl (7.4-10.4); Monocytes # 0.3 K/mm3 (0.1-1.0); Monocytes % 6.4 % (1.7-9.3); Neutrophils # 3.3 K/mm3 (1.8-7.8); Neutrophils % 70.2 % (37.0-80.0); Platelet Count 204 K/mm3 (142-424); Red Blood Count 3.97 M/mm3 (4.20-5.40); Red Cell Distribution Width 15.3 % (11.5-17.5); White Blood Count 4.8 K/mm3 (4.8-10.8)
[2023-02-22 16:55] LABS: Alanine Aminotransferase 16 U/L (12-78); Albumin Level 3.9 g/dl (3.5-5.0); Albumin/Globulin Ratio 1.3 (1.1-1.8); Alkaline Phosphatase 124 U/L (38-126); Anion Gap 8.4 mEq/L (5-15); Aspartate Amino Transferase 29 U/L (14-36); Bilirubin,Total 0.2 mg/dl (0.2-1.3); Blood Urea Nitrogen 26 mg/dl (7-17); Calcium 9.4 mg/dl (8.4-10.2); Carbon Dioxide 37 mmol/L (22.0-30.0); Chloride 98 mmol/L (98-107); Estimated Glomerular Filt Rate 70 ml/min (>60); GFR (African American) 84 ML/MIN (>60); Globulin 2.9 g/dL (1.3-3.2); Glucose 80 mg/dl (74-100); Potassium 4.4 mmoL/L (3.5-5.1); Sodium 139 mmol/L (136-145); Total Protein,Serum 6.8 g/dl (6.3-8.2)
[2023-02-22 17:23] LABS: Thyroid Stimulating Hormone 4.01 uIU/mL (0.465-4.68)
[2023-02-22 19:35] LABS: Iron 53 ug/dL (37-170)
[2023-02-22 19:44] LABS: Total Iron Binding Capacity 355 ug/dL (265-497)
== END ==
PROVIDERS: PCP Family Medicine; Visit Provider Family Medicine
DX: J44.9 Chronic obstructive pulmonary disease, unspecified (principal); R60.0 Localized edema; E78.5 Hyperlipidemia, unspecified
CPT/HCPCS: 80053; 83540; 83550; 84443; 85025

== ENCOUNTER → 2023-02-22 11:39 | Outpatient (CLI) | payer MEDICARE, MEDICAID, SELFPAY ==
--- NOTE | 2023-02-22 11:39 | NM_ITS ---
APPROVED REPORT Exam: Nuclear Stress Test Indication: chest pain..fatigue..palpitations..soa..syncope Patient Location: Outpatient Stress Tech: Criselda Munroe [place] Tech:LANCE Germain RT(R)(N) Ht: 5 ft 6 in Wt: 107 lbs Bra Size: b HR: 60 bpm BP: 117/46 mmHg BSA: 1.53 m2 TID: 1.06 BMI: 17.2 History: chest pain..fatigue..palpitations..soa..syncope Procedure: Patient received 0.4 mg of intravenous Lexiscan, resting heart rate 60 bpm, resting blood pressure 117/46 mmHg, with Lexiscan maximum heart rate achieved was 90 bpm which is Less than 85 % of the maximum predicted heart rate and blood pressure was 121/60 mmHg. With Lexiscan, patient denied any complaint of chest pain. The patient was unable to lay on her belly for prone images. Electrocardiogram Resting electrocardiogram shows sinus rhythm, with the Lexiscan there is less than 1.[address] segment depression noted from the baseline EKG. The EKG portion of the Lexiscan is nondiagnostic. Cardiac Stress and Resting SPECT Images: Cardiac Stress and Resting SPECT images were obtained using technetium 99m Myoview 32.1 mCi stress and 10.17 mCi at rest. Gated SPECT analysis of segmental wall motion and calculation of the ejection fraction also done. Cardiac stress and rest respectively show uniform myocardial activity without segmental perfusion abnormality, computer derived ejection fraction is over 65% with no regional wall motion abnormality, right ventricle is normal size and contractility. Conclusion: 1. The EKG portion of the Lexiscan is nondiagnostic. 2. No scintigraphic evidence of reversible ischemia seen, computer derived ejection fraction over 65% with no regional wall motion abnormality, right ventricle is normal size and contractility. 3. Normal Lexiscan Myoview study. Electronically signed by : Raymond Lux MD 02/22/2023 16:53:31
--- NOTE | 2023-02-22 12:43 | CA_ITS ---
APPROVED REPORT EXAM: Comprehensive 2D, Doppler, and color-flow Echocardiogram Adjunct Physical Education Instructor: Tanya Hook, RT(R) Ht: 5 ft 6 in Wt: 105lbs BSA: 1.52 BP: 131/44 mmHg Indications: CP, hyperlipidemia, HTN, supraglotic cancer with chemo and radiation, pacemaker, pulmonary HTN, limited scan secondary to body habitus. 2D Dimensions LVOT 1.75 cm (M/F) 1.5-2.5 M-Mode Dimensions RVDd 2.01 cm (0.9-2.6) LA Diam 2.23 cm (1.9-4.0) LVDd 4.18 cm (3.5-5.7) Ao Diam 2.48 cm (2.0-3.7) LVDs 2.84 cm (3.5-5.7) IVSd 0.80 cm (0.6-1.1) PWd 0.59 cm (0.6-1.1) EF (Teich) 60.60% FS 32.10% EDV (Teich) 77.70 mL ESV (Teich) 30.60 mL Tricuspid Valve TR P. Velocity 260.00 cm/s RAP Estimate 15.00 mmHg RVSP 42.00 mmHg Left Ventricle Weekly difficult and limited study. Left atrium is mildly enlarged left ventricle is normal size mild concentric left ventricular hypertrophy, estimated ejection fraction 55% with no regional wall motion abnormality, diastolic parameters are inconclusive. Right Ventricle Right atrium and right ventricle are mildly enlarged with normal contractility. Aortic Valve Aortic valve is minimally thickened and calcified without aortic stenosis or aortic insufficiency. Mitral Valve Mitral valve is grossly normal, there is trace mitral regurgitation. Tricuspid Valve Tricuspid grossly normal, there is trace tricuspid regurgitation, tricuspid regurgitation jet plus is inadequate for calculation of the right ventricular systolic pressure. Pulmonic Valve Pulmonic valve is poorly visualized. Great Vessels Aortic root is normal size. Inferior vena cava is poorly visualized. Pericardium No significant pericardial effusion noted. Conclusion 1. Mild biatrial enlargement, normal left ventricular size mild concentric left ventricular hypertrophy, estimated ejection fraction 55% with no regional wall motion abnormality. 2. Mildly enlarged right ventricle with normal contractility. 3. Trace mitral and tricuspid regurgitation. 4. No significant pericardial effusion noted. 5. Inferior vena cava is poorly visualized. Electronically signed by : Raymond Lux MD 02/22/2023 17:08:11
--- NOTE | 2023-02-22 13:41 | CA_ITS ---
APPROVED REPORT Exam: Pharmacologic Technologist: Criselda Zheng, Ht: 5 ft 6 in Wt: 105 lbs BSA: 1.52 m2 HR: 60 bpm BP: 117/64 mmHg Indications: CP Medical History Medications: Omeprazole,,,,, Levothyroxine,,,,, Asa,,,,, Pravastatin,,,,, Diazepam,,,,, Carafate,,,,, SyMBICORT,,,,, Albuterol,,,,, DulOXETINE,,,,, DONEPEZIL,,,,, OxYCODONE,,,,, Vit B12,,,,, Stress Test Details Test: LEXISCAN Reason for pharmacologic stress test: physical limitation. HR Resting HR: 60 bpm Max Heart Rate (APMHR): 144.785221 bpm Max HR Achieved: 90 bpm Target HR (85% APMHR): 122.970081 bpm % of APMHR: 62.50 Recovery HR: 80 bpm BP Resting BP: 117.0/46.0 mmHg Max BP: 121.0/60.0 mmHg Recovery BP: 119.0/56.0 mmHg ECG Resting ECG: NSR, 1* AVB, otherwise normal Clinical Exercise duration: 04:01 min Highest Stage Achieved: Stress ECG Conclusion Symptoms: Numerous complaints; CP, SOA, kidneys , neck, back pain, abdiminal pain. Arrhythmias/Ectopy: None. ST-T Changes: No significant changes. Conclusion: Unremarkable Lexiscan stress. Myoview images reported separately. Test Summary REST 06:33 . . 60 . 117/ 46 . . Stage 1 01:00 . . 79 . . . . Stage 2 01:00 . . 84 . 120/ 53 . . Stage 3 01:00 . . 84 . 121/ 60 . . Stage 4 01:00 . . 77 . . . . Stage 4 01:01 . . 77 . . . Stop exercise at 04:01 RECOVERY 01:00 . . 85 . 119/ 53 . . RECOVERY 02:00 . . 87 . 119/ 53 . . RECOVERY 03:00 . . 82 . 119/ 53 . . RECOVERY 03:50 . . 74 . 119/ 56 . . Electronically signed by : Raymond Lux MD 02/22/2023 16:48:04
== END ==
PROVIDERS: PCP Family Medicine; Visit Provider Physician Assistant
DX: E78.2 Mixed hyperlipidemia (principal); I27.20 Pulmonary hypertension, unspecified; R06.02 Shortness of breath; R07.9 Chest pain, unspecified; R94.31 Abnormal electrocardiogram [ECG] [EKG]; Z95.0 Presence of cardiac pacemaker; I20.8 Other forms of angina pectoris; E61.1 Iron deficiency
CPT/HCPCS: 78452; 80053; 83540; 83550; 84443; 85025; 93017; 93306; A9502; J2785

== ENCOUNTER → 2023-05-11 13:00 | Outpatient (CLI) | payer MEDICARE, MEDICAID, SELFPAY | PROVIDERS: PCP Family Medicine; Visit Provider Family Medicine | DX: N39.0 Urinary tract infection, site not specified (principal) | CPT/HCPCS: 87086 ==

== ENCOUNTER 2023-09-13 15:38 | Emergency (ER) | payer MEDICARE, MEDICAID, SELFPAY ==
[2023-09-13 15:39] VITALS: BP 106/46; PULSE 76; RESP 17; TEMP 36.6; O2SAT 97; BMI 17.2
--- NOTE | 2023-09-13 16:33 | HMH.EDGENADL ---
Discharge Plan Disposition Patient Disposition: Home, Self-Care Chief Complaint: Recheck/Abnormal Lab/Rx Prescriptions Prescriptions: No Action sertraline 20 mg/mL concentrate 20 mg PO DAILY Patient Comments: TAKE 1ML (20MG) BY MOUTH EVERY DAY nitrofurantoin macrocrystal 50 mg capsule See Rx Instructions .ROUTE .COMPLEX Qty: 90 10RF Dose Instruction: TAKE 1 CAPSULE BY MOUTH TWICE DAILY TAKE WITH FOOD Rx Instructions: TAKE 1 CAPSULE BY MOUTH DAILY TAKE WITH FOOD albuterol sulfate 90 mcg/actuation aerosol powdr breath activated 2 inh INHALATION Q4-6H PRN (Reason: shortness of breath or wheezing) Qty: 1 10RF budesonide-formoterol 160-4.5 mcg/actuation HFA aerosol inhaler 2 puff INHALATION BID Qty: 10.2 10RF ergocalciferol (vitamin D2) 1,250 mcg (50,000 unit) capsule 50,000 unit PO WEEKLY Qty: 14 3RF gabapentin 100 mg capsule 100 mg PO HS PRN (Reason: pain in feet) Qty: 30 2RF alendronate 35 mg tablet See Rx Instructions .ROUTE .COMPLEX Qty: 12 5RF Dose Instruction: TAKE 1 TABLET BY MOUTH EVERY WEEK FOR SUPPLEMENT Rx Instructions: TAKE 1 TABLET BY MOUTH EVERY WEEK FOR SUPPLEMENT atorvastatin 20 mg tablet 20 mg PO DAILY Qty: 90 3RF celecoxib 200 mg capsule 200 mg PO DAILY Qty: 90 3RF Rx Instructions: brand name only donepezil 10 mg tablet 10 mg PO DAILY Qty: 90 3RF duloxetine 60 mg capsule, delayed rel sprinkle 60 mg PO DAILY Qty: 90 3RF omeprazole 40 mg capsule,delayed release(DR/EC) 40 mg PO DAILY Qty: 90 3RF quetiapine [Seroquel] 25 mg tablet 25 mg PO BID Qty: 60 2RF clopidogrel [Plavix] 75 mg tablet 75 mg PO DAILY Qty: 90 3RF cyanocobalamin (vitamin B-12) 1,000 mcg/mL solution 1,000 mcg IM .[id number] Qty: 10 10RF Rx Instructions: please provide syringes/needles oxycodone 5 mg/5 mL solution 10 mg PO Q6H PRN (Reason: pain) Qty: 900 0RF sucralfate (bulk) Powder 1,000 ea MISCELLANE QID Qty: 100 3RF celecoxib [Celebrex] 200 mg capsule 200 mg PO DAILY Qty: 30 2RF levothyroxine 88 mcg tablet 88 mcg PO DAILY Qty: 90 3RF diphenoxylate-atropine [Lomotil] 2.5-0.025 mg tablet 1 tab PO BID PRN (Reason: diarrhea) Qty: 30 2RF ondansetron HCl 8 mg tablet 8 mg PO Q8H PRN (Reason: nausea and vomiting) Qty: 60 3RF diazepam 5 mg/5 mL (1 mg/mL) solution 5 mg PO TID PRN (Reason: Anxiety) Qty: 450 5RF Clenpiq 10 mg-3.5 gram- 12 gram/160 mL solution 160 ml PO DAILY Qty: 320 0RF Rx Instructions: take first dose at 5-9PM evening before colonoscopy; 2nd dose the next day approximately 5 hrs before colonoscopy ciprofloxacin HCl [Cipro] 500 mg tablet 500 mg PO BID Qty: 20 0RF Referrals Follow up/Referrals: Andrew Quigley MD [Primary Care Provider] - See instructions Gregory Mi MD [Staff Physician] - See instructions Activity Restrictions/Add. Instructions Additional Instructions/Restrictions: At this time it was felt you are safe to be discharged home. If new or worsening symptoms please do not hesitate to return the emergency department. Please call and make sure your appointment with cardiology is in the coming week or so for continued evaluation. Clinical Impressions Clinical Impression: PAD (peripheral artery disease) Discharge ED Provider: Yunior Peña General Adult HPI General Chief complaint: Recheck/Abnormal Lab/Rx Stated complaint: poss blood clots in feet, sent by Dr. Quigley Time Seen by Provider: 09/13/23 16:19 Mode of Arrival: Wheelchair Limitations: No Limitations Description of Symptoms (Recalled from ER Triage Doc. by RN): PT SENT BY PCP FOR ABNORMAL PAD TEST PT WITHOUT COMPLAINTS AT THIS TIME. PT HAS CHRONIC PAIN. History of Present Illness HPI narrative: Patient is 77-year-old female with past medical history of hypothyroidism, COPD, hyperlipidemia who presents emergency department for evaluation of an abnormal peripheral a
[2023-09-13 16:45] VITALS: BP 132/56; PULSE 72; RESP 18; TEMP 36.6; O2SAT 97
== END 2023-09-13 16:45 | disposition home or self-care (01) ==
PROVIDERS: Emergency Provider Emergency Medicine; PCP Family Medicine
DX: I73.9 Peripheral vascular disease, unspecified (principal); I20.9 Angina pectoris, unspecified; J44.9 Chronic obstructive pulmonary disease, unspecified; E03.9 Hypothyroidism, unspecified; E78.5 Hyperlipidemia, unspecified; Z87.891 Personal history of nicotine dependence
CPT/HCPCS: 99283

== ENCOUNTER 2023-09-18 07:50 | Day surgery (SDC) | payer MEDICARE, MEDICAID, SELFPAY ==
[2023-09-14 13:12] VITALS: BMI 17.2
[2023-09-18] VITALS (8 sets, daily range): BP systolic 93–152; BP diastolic 52–82; PULSE 63–79; RESP 16–18; TEMP 36.2–36.6; O2SAT 97–100
--- NOTE | 2023-09-18 08:28 | P.PNANES_ITS ---
[facility] Disclaimer: The information contained in this section may have been updated after the patient was seen, as this information can be updated by other users. Medical History Cervical stenosis (uterine cervix) Chest pain History of esophageal cancer Spinal stenosis Typical angina Family History Other Family history of myocardial infarction Social History (Updated 09/18/23 @ 08:20 by Marleny Todd RN) Smoking Status: Former smoker tobacco type: cigarettes packs per day: 5 alcohol intake: never substance use type: denies use current occupational status: retired Travel in the last 8 weeks: None household members: spouse housing: house current occupational exposures/hazards: No caffeine: Yes [facility] Anesthesia Checklist Patient Identification Patient Identification: Arm Band Structural Data Admitted From: Home Planned Operative Procedure/s: colonoscopy Consent for Planned Operative Procedure(s) Verified: Yes Verified Documents: Surgical Consent and History and Physical NPO Status Verified Time NPO: 00:00 Additional verifications Anesthesia Reactions: No Airway Assessment Mallampati Score:: Class II C-Spine Mobility Assessed: Yes TMJ Mobility Assessed: Yes Dentition: Good Dentition Neurological Assessment Level of Consciousness: Awake and Alert Anesthesia Plan Anesthesia Risk discussed: Yes Anesthesia Plan: Verified ASA Class: III Anesthesia Type: MAC
--- NOTE | 2023-09-18 09:18 | HMH.SCOPE ---
Procedure: Date: 09/18/23 Patient Date of :: 1945 Procedure Performed:: Colonoscopy with polypectomy by means other than snare Indications:: History of colon polyps Performing Provider:: Memo Shafer MD Referring Provider:: . Sedation:: Monitored anesthesia care Procedure:: After informed consent was obtained the patient was taken to the endoscopy suite. Sedation ensued after the patient was transferred to the left lateral decubitus position. Pulse, blood pressure, and oxygen saturation were monitored throughout the procedure. Digital rectal exam revealed no significant abnormality. The colonoscope was placed in position. The entire colon was evaluated. The colonoscope was carefully removed and the patient was transferred to recovery in stable condition. Please see findings and specimens below for detail. Findings:: Bowel preparation moderate to poor Fairly significant spasticity/tortuosity Small sessile polyp at 35 cm Specimens:: Sessile polyp at 35 cm (cold biopsy forceps) Recommendations:: Timing of repeat colonoscopy is pending pathology but likely be between 2-3 years with extended bowel preparation secondary to history of polyps, moderate to poor bowel preparation, and spasticity/tortuosity. Complications:: No immediate Estimated blood obtained (mL): 1 Colonoscopy Component Colonoscopy Component Was a colonoscopy performed during today's procedure?: Yes Recommended follow up colonoscopy of at least 10 years?: No If no, follow up colonoscopy recommended in ___ years?: (See above) Reason for not recommending >/= 10 yr follow-up interval?: (See above)
== END 2023-09-18 10:10 | disposition home or self-care (01) ==
PROVIDERS: PCP Family Medicine; Visit Provider Surgery
PROC: 0DJD8ZZ Inspection of Lower Intestinal Tract, Via Natural or Artificial Opening Endoscopic (ICD-10-PCS; CPT 45380; principal; 2023-09-18 08:30)
DX: Z12.11 Encounter for screening for malignant neoplasm of colon (principal); Z86.010 Personal history of colon polyps; K56.2 Volvulus; D12.5 Benign neoplasm of sigmoid colon
CPT/HCPCS: 45380; 88305; J2704

== ENCOUNTER → 2023-10-01 08:22 | Outpatient (CLI) | payer MEDICARE, MEDICAID, SELFPAY ==
[2023-10-01 22:11] LABS: Alanine Aminotransferase 19 U/L (12-78); Albumin Level 3.7 g/dl (3.5-5.0); Albumin/Globulin Ratio 1.3 (1.1-1.8); Alkaline Phosphatase 137 U/L (38-126); Aspartate Amino Transferase 35 U/L (14-36); Blood Urea Nitrogen 28 mg/dl (7-17); Calcium 9.5 mg/dl (8.4-10.2); Carbon Dioxide 31 mmol/L (22.0-30.0); Chloride 100 mmol/L (98-107); Estimated Glomerular Filt Rate 61 ml/min (>60); GFR (African American) 74 ML/MIN (>60); Globulin 2.8 g/dL (1.3-3.2); Glucose 87 mg/dl (74-100); Sodium 139 mmol/L (136-145); Total Protein,Serum 6.5 g/dl (6.3-8.2)
[2023-10-01 22:16] LABS: Bilirubin,Total < 0.1 mg/dl (0.2-1.3)
[2023-10-01 22:26] LABS: T4 (Thyroxine) 4.9 ug/dl (5.53-11.0)
[2023-10-01 22:40] LABS: Thyroid Stimulating Hormone 2.32 uIU/mL (0.465-4.68)
== END ==
PROVIDERS: PCP Family Medicine; Visit Provider Family Medicine
DX: E03.9 Hypothyroidism, unspecified (principal); R60.0 Localized edema
CPT/HCPCS: 80053; 84436; 84443

== ENCOUNTER → 2023-12-12 10:39 | Outpatient (POV) | payer MEDICARE, MEDICAID, SELFPAY ==
--- NOTE | 2023-12-12 11:04 | A.OFFVIS_ITS ---
HPI Data of Consult Patient: new to practice Consult date: 12/12/23 Requesting Physician: Catalina Serrano APRN Primary Care Provider: Andrew Quigley MD Consult Narrative Reason for consult: Neck pain, bilateral arm pain, low back pain with lumbar radiculopathy History of present illness: Ms. Bennett is a 78 year old female who presents today as a new patient. She is a referral from Leonela Maria's office. Today she rates her pain a 8 out of 10. Patient states she has pain throughout her neck and upper arms that goes into her mid back and low back with radiating symptoms into her legs. Patient states this has been going on for at least 4-1/2 5 years. Patient states that she did have surgery back in 1999 1818 however she is unsure what the surgery was on her low back. She states that this was done in [place] and that she was scheduled for additional surgery for her thoracic and cervical spine however ended up getting diagnosed with esophageal cancer and had to put this on hold. Patient states when she did eventually go back that the doctor told her they could no longer do surgery. She states that that time she was referred to a pain doctor and after time that company went out of business. She states then she went with a Sterling Lucio who she did get injections that did help as well as oral medications of oxycodone and Valium. Patient states then later this was closed and she has since been looking for a new pain management. Patient does have a significant heart history and states that she does have some blockages and that she sees Hi[facility]ot's office here at [facility]. Patient does states she has a cardiac pacemaker in place. Patient does also state that she has a [employer] spinal cord stimulator in place. She states it does help with her leg symptoms however she has not had it reprogrammed for about a year and a half. Patient does describe her pain as a constant sharp sensation with some numbness and tingling into her extremities. Patient states she has had recent imaging approximately a year ago done at [facility]. Patient states she has tried Tylenol along with heat and ice and topicals with minimal relief. Patient has had physical therapy in the past however it did not make any difference. She also states that she has had water therapy and chiropractor therapy with no additional improvement. Patient does state that Dr. Quigley is currently managing her pain medications of Oxycodone 5 mg solution, diazepam 5 mg solution and gabapentin 100 mg daily. Her Jose Elias has been reviewed. CC: Catalina Serrano APRN [facility] Disclaimer: The information contained in this section may have been updated after the patient was seen, as this information can be updated by other users. Medical History Cervical stenosis (uterine cervix) Chest pain History of esophageal cancer Spinal stenosis Typical angina Family History Other Family history of myocardial infarction Social History (Updated 12/12/23 @ 10:47 by Susie Rhodes RN) Smoking Status: Former smoker tobacco type: cigarettes packs per day: 5 alcohol intake: never substance use type: denies use current occupational status: other Travel in the last 8 weeks: None household members: spouse housing: house current occupational exposures/hazards: No caffeine: Yes Review of Systems Review of Systems Review of systems:: pertinent systems reviewed and negative unless documented below Review of systems (narrative): Review of Systems: General: No recent weight changes, no fever, no sleep disturbances Respiratory: No cough, no shortness of air, no recurring pulmonary infections Cardiovascular/peripheral vascular: No chest pain, no palpitations, no edema, no shortness of breath Gastrointestinal: No new onset incontinence, normal bowel movements reported Genitourinary: No new onset incontinence Musculoskeletal: Low back pain, neck pain, chronic pain, extremity pain Psychiatric: [Normal mood/affect] Neurological: [Denies weakness in extremities], [denies balance issues] Meds Home Medications and Allergies Home Medications Medication Instructions Recorded Confirmed Type albuterol sulfate 90 mcg/actuation 2 inh inhalation Q4-6H PRN 02/13/22 12/12/23 Rx breath activated powder inhaler shortness of breath or wheezing #1 ea budesonide-formoterol HFA 160 2 puff inhalation BID Asthma #10.2 02/13/22 12/12/23 Rx mcg-4.5 mcg/actuation aerosol grams inhaler sucralfate (bulk) 1,000 ea miscellaneous QID STOMACH 11/21/22 12/12/23 Rx #100 grams alendronate 35 mg tablet See Rx Instructions .Route 03/26/23 12/12/23 Rx .COMPLEX #12 tabs atorvastatin 20 mg tablet 20 mg PO DAILY #90 tabs 03/26/23 12/12/23 Rx celecoxib 200 mg capsule 200 mg PO DAILY . #90 caps 03/26/23 12/12/23 Rx donepezil 10 mg tablet 10 mg PO DAILY dementia #90 tabs 03/26/23 12/12/23 Rx duloxetine 60 mg capsule,delayed 60 mg PO DAILY #90 caps 03/26/23 12/12/23 Rx release sprinkle omeprazole 40 mg capsule,delayed 40 mg PO DAILY #90 caps 03/26/23 12/12/23 Rx release ergocalciferol (vitamin D2) 1,250 50,000 unit PO WEEKLY Supplement 04/20/23 12/12/23 Rx mcg (50,000 unit) capsule #14 caps levothyroxine 88 mcg tablet 88 mcg PO DAILY hypothyroidism #90 04/24/23 12/12/23 Rx tabs clopidogrel 75 mg tablet (Plavix) 75 mg PO DAILY #90 tabs 05/11/23 12/12/23 Rx cyanocobalamin (vitamin B-12) 1,000 mcg IM .[id number] Supplement 05/11/23 12/12/23 Rx 1,000 mcg/mL injection solution #10 mL sertraline 20 mg/mL oral 20 mg PO DAILY 06/05/23 12/12/23 History concentrate nitrofurantoin macrocrystal 50 mg See Rx Instructions .Route 07/02/23 12/12/23 Rx capsule .COMPLEX #90 caps ondansetron HCl 8 mg tablet 8 mg PO Q8H PRN nausea and 07/03/23 12/12/23 Rx vomiting #60 tabs oxycodone 5 mg/5 mL oral solution 10 mg (10 mL) PO Q6H PRN pain #900 11/08/23 12/12/23 Rx mL diazepam 5 mg/5 mL (1 mg/mL) oral 5 mg (5 mL) PO TID PRN Anxiety 11/12/23 12/12/23 Rx solution #450 mL diphenoxylate-atropine 2.5 1 tab PO BID PRN diarrhea #30 tabs 11/12/23 12/12/23 Rx mg-0.025 mg tablet (Lomotil) gabapentin 100 mg capsule 100 mg PO HS PRN pain in feet #30 11/12/23 12/12/23 Rx caps New Prescriptions to Start Prescriptions: Allergies Allergy/AdvReac Type Severity Reaction Status Date / Time fentanyl AdvReac Intermediate Vomiting Verified 12/06/23 10:28 Objective Narrative: Physical Exam: General: Alert and oriented x3, no acute distress, pleasant and cooperative Lungs: Respirations even and unlabored, symmetrical chest expansion Eyes: PERRL Musculoskeletal: Flexion and extension of cervical, lumbar [spine] somewhat guarded secondary to pain, [antalgic gait noted] Neurological: Speech clear, no gross sensory deficit Additional findings Additional findings: CT lumbar spine with contrast 04/14/2022 Findings: Vertebral body heights and alignment is preserved. No fractures, pars defect or bony destructive lesion. Interval laminectomy changes L3-L4. Multilevel discogenic degeneration redemonstrated appearing greatest and moderate to severe L4-L5 and L5-S1 appearing a little progressive at L5-S1 and similar elsewhere. Mild mid to lower lumbar facet arthropathy appears similar. Individual interspaces are discussed in more detail below. A G-tube is present in the stomach. There is moderate to heavy atherosclerotic calcification including abdominal aorta and its branches without aneurysm. Spinal stimulator redemonstrated at the electrodes entering the spinal canal posteriorly at the T10-11 level and electrode tips extend cephalad into the thoracic canal off the plane of cross-sectional imaging at the level of the inferior endplate of T10 through electrode tips are shown on the scanogram sequence to extend as high as T8-9 cardiac pacer partially imaged. Linear atelectasis included lung bases, right greater than left. Mitral valve prosthesis partially imaged. Moderate amount of radiodense material is included portions of the colon in nonspecific though likely Pepto-Bismol in the absence of a recent exam using oral contrast. T10-11: Only partially imaged though unremarkable T11-12, T12-L1 and L1-L2: Unremarkable L2-3: Minimal noncompressive disc bulging without change L3-4: Mild disc bulging appears a little progressive through the central canal was patent given interval laminectomy. Moderate left foraminal narrowing due to disc spur complexes appear similar. Mild right foraminal narrowing due to disc bulging and facet arthropathy appears similar. L4-L5: Mild disc bulging appears similar. Central canal patent. Mild right and mild to moderate left foraminal narrowing due to discogenic degeneration of the right and discogenic and facet degeneration on the left appears similar L5-S1: Mild disc spur complex appears similar and does not compress the thecal sac or compress or displace the traversing S1 nerve root on either side. Central canal patent. Mild bilateral foraminal narrowing due to disc spur complex appearing improved, previously moderate to high-grade on the right and moderate on the left apparently due to resulting foraminal disc protrusions Assessment and Plan *Assessment and plan (1) Neck pain: Status: Acute Category: Medical Code(s): M54.2 - Cervicalgia (2) Low back pain: Status: Acute Qualifiers: Back pain laterality: bilateral Chronicity: chronic Sciatica presence: without sciatica Qualified Code(s): M54.50 - Low back pain, unspecified; G89.29 - Other chronic pain Category: Medical Code(s): M54.50 - Low back pain, unspecified (3) Chronic pain syndrome: Status: Acute Category: Medical Code(s): G89.4 - Chronic pain syndrome Plan Patient is experiencing pain at multiple locations including her cervical and lumbar spine. I have discussed with the patient that we are an interventional pain clinic and that we do not prescribe any scheduled medications for new patients. I have reviewed over with the patient that she may benefit from cervical or lumbar epidurals however this would be contingent on confirming with Dr. Mi's office that she is able to do these injections. I have also discussed with the patient that she may benefit long-term from a intrathecal pain pump trial. Risk and benefits were also discussed with the patient. I have counseled the patient that we will contact [facility] and get her imaging sent to us. Patient does have a [employer] spinal cord stimulator and I have contacted outbound sales representative to be present at her next visit for reprogramming. Patient will return to clinic in 2 weeks for reevaluation of symptoms and plan of care. Patient has been instructed to contact the clinic with any concerns before the next appointment. Dr. Villela has reviewed this note and agrees with this plan of care. This note was dictated using voice recognition software and make contain errors or omissions.
[2023-12-12 12:18] VITALS: BP 113/59; PULSE 71; RESP 18; O2SAT 99; BMI 16.5
== END ==
PROVIDERS: PCP Family Medicine; Visit Provider Nurse Practitioner Family
DX: M54.2 Cervicalgia (principal); M54.50 Low back pain, unspecified; G89.4 Chronic pain syndrome
CPT/HCPCS: 99202; G0463

== ENCOUNTER 2023-12-19 21:07 | Outpatient (CLI) | payer MEDICARE, MEDICAID, SELFPAY ==
[2023-12-19 19:05] LABS: Basophils % 0.8 % (0.1-2.0); Eosinophils # 0.3 K/mm3 (0.0-0.4); Eosinophils % 5.7 % (0.1-12.0); Hematocrit 33.6 % (37.0-47.0); Hemoglobin 10.9 g/dL (12.2-16.2); Lymphocytes # 0.8 K/mm3 (0.7-4.5); Lymphocytes % 15.2 % (10-50); Mean Corpuscular HGB Conc 32.4 g/dL (31.8-35.4); Mean Corpuscular Hemoglobin 28.8 pg (27.0-31.2); Mean Corpuscular Volume 88.9 fl (81-99); Mean Platelet Volume 11.9 fl (7.4-10.4); Monocytes # 0.4 K/mm3 (0.1-1.0); Monocytes % 8.6 % (1.7-9.3); Neutrophils # 3.6 K/mm3 (1.8-7.8); Neutrophils % 69.6 % (37.0-80.0); Platelet Count 241 K/mm3 (142-424); Red Blood Count 3.78 M/mm3 (4.20-5.40); Red Cell Distribution Width 14.1 % (11.5-17.5); White Blood Count 5.1 K/mm3 (4.8-10.8)
[2023-12-19 20:22] LABS: Chloride 102 mmol/L (98-107); Potassium 4.2 mmoL/L (3.5-5.1); Sodium 137 mmol/L (136-145)
[2023-12-19 20:24] LABS: Alanine Aminotransferase 23 U/L (12-78); Alkaline Phosphatase 135 U/L (38-126); Aspartate Amino Transferase 39 U/L (14-36); Bilirubin,Total 0.2 mg/dl (0.2-1.3); Blood Urea Nitrogen 20 mg/dl (7-17); Estimated Glomerular Filt Rate 61 ml/min (>60); GFR (African American) 73 ML/MIN (>60)
[2023-12-19 20:25] LABS: Albumin Level 3.4 g/dl (3.5-5.0); Albumin/Globulin Ratio 1.2 (1.1-1.8); Anion Gap 8.2 mEq/L (5-15); Calcium 9.3 mg/dl (8.4-10.2); Carbon Dioxide 31 mmol/L (22.0-30.0); Globulin 2.8 g/dL (1.3-3.2); Glucose 89 mg/dl (74-100); Iron 40 ug/dL (37-170); Total Protein,Serum 6.2 g/dl (6.3-8.2)
[2023-12-19 20:34] LABS: Total Iron Binding Capacity 325 ug/dL (265-497)
== END 2023-12-19 23:59 ==
PROVIDERS: PCP Family Medicine; Visit Provider Family Medicine
DX: E03.9 Hypothyroidism, unspecified (principal); I25.10 Atherosclerotic heart disease of native coronary artery without angina pectoris; E78.5 Hyperlipidemia, unspecified; Z76.0 Encounter for issue of repeat prescription; Z79.899 Other long term (current) drug therapy; E83.10 Disorder of iron metabolism, unspecified
CPT/HCPCS: 80053; 83540; 83550; 84443; 85025

== ENCOUNTER → 2023-12-26 09:34 | Outpatient (POV) | payer MEDICARE, MEDICAID, SELFPAY ==
--- NOTE | 2023-12-26 10:08 | EXP.PAIN.SOA ---
[facility] Pain Management SOAP Note Subjective:: Patient is a pleasant 78-year-old female who presents today for follow-up. We are currently treating the patient for chronic pain syndrome, neck pain, low back pain with lumbar radiculopathy symptoms. Today she rates her pain a 5 out of 10. Patient denies any new trauma or injury. She states she continues to have debilitating pain on a constant basis throughout her back. At her last visit we did discuss that she may benefit from a intrathecal pain pump trial and today she does states she has some additional questions. Patient does have significant heart history and we were planning on reaching out to her chair post machine operator before proceeding forward. Patient is also scheduled to meet with [employer] indirect sales representative for reprogramming of her spinal cord stimulator today. Patient is currently managed with oxycodone 5 mg solution, diazepam 5 mg solution and gabapentin 100 mg daily from her PCP. Her Jose Elias has been reviewed and is appropriate. Review of Systems: General: No recent weight changes, no fever, no sleep disturbances Respiratory: No cough, no shortness of air, no recurring pulmonary infections Cardiovascular/peripheral vascular: No chest pain, no palpitations, no edema, no shortness of breath Gastrointestinal: No new onset incontinence, normal bowel movements reported Genitourinary: No new onset incontinence Musculoskeletal: Neck pain, low back pain Psychiatric: [Normal mood/affect] Neurological: [Denies weakness in extremities], [denies balance issues] Objective:: Physical Exam: General: Alert and oriented x3, no acute distress, pleasant and cooperative Lungs: Respirations even and unlabored, symmetrical chest expansion Eyes: PERRL Musculoskeletal: Flexion and extension of lumbar [spine] somewhat guarded secondary to pain, [antalgic gait noted] Neurological: Speech clear, no gross sensory deficit Assessment:: Chronic pain syndrome, neck pain, low back pain with lumbar radiculopathy symptoms Plan:: Patient continues to have significant pain throughout her with limited range of motion of her lumbar spine. I have reviewed over again the risk and benefits of the intrathecal pain pump trial and she would like to proceed forward with this plan of care. I have counseled the patient that we did contact Dr. Mi's office and they have given approval to proceed forward with this plan of care and trial. I will order the patient a psychological evaluation and if they are deemed an appropriate candidate we will proceed forward with the intrathecal pain pump trial at a later date. Patient was able to be reprogrammed by [employer] indirect sales representative. Patient's spinal cord stimulator was however indirect sales representative was able to charge the battery and remap her stimulation. Patient did get good coverage on her left and right leg however did not have his good coverage on the back. Patient does have paddle leads and has been implanted since 2011. Patient will return to clinic in 1 month for reevaluation of symptoms and plan of care. Patient has been instructed to contact the clinic with any concerns before the next appointment. Dr. Villela has reviewed this note and agrees with this plan of care. This note was dictated using voice recognition software and make contain errors or omissions. [facility] Disclaimer: The information contained in this section may have been updated after the patient was seen, as this information can be updated by other users. Medical History Cervical stenosis (uterine cervix) Chest pain History of esophageal cancer Spinal stenosis Typical angina Family History Other Family history of myocardial infarction Social History Smoking Status: Former smoker tobacco type: cigarettes packs per day: 5 alcohol intake: never substance use type: denies use current occupational status: other Travel in the last 8 weeks: None household members: spouse housing: house current occupational exposures/hazards: No caffeine: Yes
== END ==
LOC: SC.PAIN 09:35
PROVIDERS: PCP Family Medicine; Visit Provider Nurse Practitioner Family
DX: G89.4 Chronic pain syndrome (principal); M54.2 Cervicalgia; M54.50 Low back pain, unspecified
CPT/HCPCS: 99212; G0463

== ENCOUNTER → 2024-01-24 09:14 | Outpatient (POV) | payer MEDICARE, MEDICAID, SELFPAY ==
--- NOTE | 2024-01-24 09:34 | EXP.PAIN.SOA ---
[facility] Pain Management SOAP Note Subjective:: Patient is a pleasant 78-year-old female who presents today for follow-up. We are currently treating the patient for chronic pain syndrome, neck pain, degenerative disc disease of lumbar spine with lumbar radiculopathy symptoms. Today she rates her pain a 7 out of 10. Patient denies any new trauma or injury. She states she continues to have chronic pain on a daily basis. At our last visit we did send her for a psychological evaluation for the possible pain pump trial. Patient states she did go to this visit and was told that she did pass and that the report would get sent to us. Patient states that she is getting relief currently with her oxycodone 5 mg solution and that if possible she would like to stick with that however if that is not an option she would like to proceed forward with the intrathecal pain pump trial. Patient does have a [employer] spinal cord stimulator in place that was reprogrammed at her last visit. She states it is doing well. Patient is currently managed with the oxycodone 5 mg solution, diazepam 5 mg solution and gabapentin 100 mg daily from her PCP. Her Jose Elias has been reviewed and is appropriate. Review of Systems: General: No recent weight changes, no fever, no sleep disturbances Respiratory: No cough, no shortness of air, no recurring pulmonary infections Cardiovascular/peripheral vascular: No chest pain, no palpitations, no edema, no shortness of breath Gastrointestinal: No new onset incontinence, normal bowel movements reported Genitourinary: No new onset incontinence Musculoskeletal: Low back pain, neck pain Psychiatric: [Normal mood/affect] Neurological: [Denies weakness in extremities], [denies balance issues] Objective:: Physical Exam: General: Alert and oriented x3, no acute distress, pleasant and cooperative Lungs: Respirations even and unlabored, symmetrical chest expansion Eyes: PERRL Musculoskeletal: Flexion and extension of lumbar [spine] somewhat guarded secondary to pain, [antalgic gait noted] Neurological: Speech clear, no gross sensory deficit Assessment:: Chronic pain syndrome, neck pain, degenerative disc disease of lumbar spine with lumbar radiculopathy symptoms Plan:: Patient continues to have chronic pain throughout multiple areas. Patient did have limited range of motion of her lumbar spine during today's exam. I have reviewed over the risk and benefits of the intrathecal pain pump trial and patient has stated that she would like to proceed forward with this option if she is unable to do the oxycodone solution that she is currently been on. I will reach out to Dr. Villela and confirm the plan of care. We will keep an eye out for her psychological evaluation. Patient has tried and failed conservative treatment such as oral medication, heat and ice, topicals, previous physical therapy. Patient relies on wheelchair for help with ambulation and does have a significant history of heart and pulmonary issues and is unable to tolerate current physical therapy due to these comorbidities. At this time we will call the patient for her next follow-up for reevaluation of symptoms and plan of care. At this time our office is able to offer the intrathecal pain pump trial. We will wait for the patient's psychological evaluation to confirm that she was deemed an appropriate candidate for this device and if appropriate we will submit for the intrathecal pain pump trial with a one-time intrathecal injection of fentanyl 25 mcg. Patient has been instructed to contact the clinic with any concerns before the next appointment. Dr. Villela has reviewed this note and agrees with this plan of care. This note was dictated using voice recognition software and make contain errors or omissions. Addendum: We did receive a report from Felecia Telles regarding the patient's psychological evaluation. Patient did tell us at her last visit that she was told she passed this evaluation however documentation from this provider states that the patient refused to fill out her paperwork and stated with her previous throat cancer and current medications that she did not plan to come off of these in the future. Due to this evaluation we will contact the patient to let her know that she was not found to be an appropriate patient for the intrathecal pain pump trial and at this time we can only offer injection therapy. [facility] Disclaimer: The information contained in this section may have been updated after the patient was seen, as this information can be updated by other users. Medical History Cervical stenosis (uterine cervix) Chest pain History of esophageal cancer Spinal stenosis Typical angina Family History Other Family history of myocardial infarction Social History Smoking Status: Former smoker tobacco type: cigarettes packs per day: 5 alcohol intake: never substance use type: denies use current occupational status: retired Travel in the last 8 weeks: None household members: spouse housing: house current occupational exposures/hazards: No caffeine: Yes
[2024-01-24 11:11] VITALS: BP 108/49; PULSE 67; RESP 18; O2SAT 98; BMI 17.2
== END ==
LOC: SC.PAIN 09:15
PROVIDERS: PCP Family Medicine; Visit Provider Nurse Practitioner Family
DX: G89.4 Chronic pain syndrome (principal); M54.2 Cervicalgia; M51.16 Intervertebral disc disorders with radiculopathy, lumbar region
CPT/HCPCS: 99212; G0463

== ENCOUNTER 2024-06-11 11:48 | Outpatient (CLI) | payer MEDICARE, MEDICAID, SELFPAY ==
[2024-06-11 18:09] LABS: Basophils % 0.7 % (0.1-2.0); Eosinophils # 0.2 K/mm3 (0.0-0.4); Eosinophils % 5.4 % (0.1-12.0); Hematocrit 30.6 % (37.0-47.0); Hemoglobin 9.7 g/dL (12.2-16.2); Lymphocytes # 0.9 K/mm3 (0.7-4.5); Lymphocytes % 21.6 % (10-50); Mean Corpuscular HGB Conc 31.6 g/dL (31.8-35.4); Mean Corpuscular Hemoglobin 27.6 pg (27.0-31.2); Mean Corpuscular Volume 87.2 fl (81-99); Mean Platelet Volume 11.1 fl (7.4-10.4); Monocytes # 0.3 K/mm3 (0.1-1.0); Monocytes % 7.9 % (1.7-9.3); Neutrophils # 2.7 K/mm3 (1.8-7.8); Neutrophils % 64.5 % (37.0-80.0); Platelet Count 195 K/mm3 (142-424); Red Blood Count 3.51 M/mm3 (4.20-5.40); Red Cell Distribution Width 16.7 % (11.5-17.5); White Blood Count 4.2 K/mm3 (4.8-10.8)
[2024-06-11 19:30] LABS: Alanine Aminotransferase 22 U/L (12-78); Albumin Level 3.5 g/dl (3.5-5.0); Albumin/Globulin Ratio 1.2 (1.1-1.8); Alkaline Phosphatase 103 U/L (38-126); Anion Gap 7.3 mEq/L (5-15); Aspartate Amino Transferase 34 U/L (14-36); Blood Urea Nitrogen 24 mg/dl (7-17); Calcium 9.1 mg/dl (8.4-10.2); Carbon Dioxide 34 mmol/L (22.0-30.0); Chloride 100 mmol/L (98-107); Estimated Glomerular Filt Rate 48 ml/min (>60); GFR (African American) 58 ML/MIN (>60); Glucose 94 mg/dl (74-100); Potassium 4.3 mmoL/L (3.5-5.1); Sodium 137 mmol/L (136-145); Total Protein,Serum 6.5 g/dl (6.3-8.2)
[2024-06-11 19:34] LABS: Bilirubin,Total 0.1 mg/dl (0.2-1.3)
[2024-06-11 20:34] LABS: Iron 78 ug/dL (37-170)
[2024-06-11 20:43] LABS: Total Iron Binding Capacity 347 ug/dL (265-497)
== END 2024-06-11 23:59 | disposition home or self-care (01) ==
LOC: LAB.DROPOF 06-12 11:48
PROVIDERS: PCP Family Medicine; Visit Provider Family Medicine
DX: E03.9 Hypothyroidism, unspecified (principal); M54.9 Dorsalgia, unspecified; E07.9 Disorder of thyroid, unspecified; E83.10 Disorder of iron metabolism, unspecified
CPT/HCPCS: 80050; 80053; 83540; 83550; 84443; 85025

== ENCOUNTER 2024-10-16 12:25 | Outpatient (CLI) | payer MEDICARE, MEDICAID, SELFPAY ==
[2024-10-16 18:07] LABS: Coronavirus 19, PCR Not Detected (NotDetected); Influenza A, PCR Not Detected (NotDetected); Influenza B, PCR Not Detected (NotDetected)
== END 2024-10-16 23:59 | disposition home or self-care (01) ==
LOC: LAB.DROPOF 10-17 09:22
PROVIDERS: PCP Family Medicine; Visit Provider Family Medicine
DX: J06.9 Acute upper respiratory infection, unspecified (principal)
CPT/HCPCS: 87636

== ENCOUNTER 2024-11-12 11:20 | Outpatient (CLI) | payer MEDICARE, MEDICAID, SELFPAY ==
[2024-11-12 18:49] LABS: Alanine Aminotransferase 28 U/L (12-78); Alkaline Phosphatase 122 U/L (38-126); Aspartate Amino Transferase 50 U/L (14-36); Bilirubin,Total 0.4 mg/dl (0.2-1.3); Blood Urea Nitrogen 26 mg/dl (7-17); Chloride 100 mmol/L (98-107); Estimated Glomerular Filt Rate 69 ml/min (>60); GFR (African American) 84 ML/MIN (>60); Glucose 84 mg/dl (74-100); Potassium 4.2 mmoL/L (3.5-5.1); Sodium 137 mmol/L (136-145); Total Protein,Serum 6.3 g/dl (6.3-8.2)
[2024-11-12 18:51] LABS: Albumin Level 3.2 g/dl (3.5-5.0); Anion Gap 5.2 mEq/L (5-15); Carbon Dioxide 36 mmol/L (22.0-30.0); Globulin 3.1 g/dL (1.3-3.2); Hematocrit 31.5 % (37.0-47.0); Hemoglobin 9.5 g/dL (12.2-16.2); Mean Corpuscular HGB Conc 30.2 g/dL (31.8-35.4); Mean Corpuscular Hemoglobin 26.5 pg (27.0-31.2); Mean Corpuscular Volume 87.7 fl (81-99); Red Blood Count 3.59 M/mm3 (4.20-5.40); White Blood Count 3.3 K/mm3 (4.8-10.8)
[2024-11-12 18:52] LABS: Basophils # 0.1 K/mm3 (0-0.2); Basophils % 1.8 % (0.1-2.0); Eosinophils # 0.2 K/mm3 (0.0-0.4); Eosinophils % 6.1 % (0.1-12.0); Lymphocytes # 1.5 K/mm3 (0.7-4.5); Lymphocytes % 45.6 % (10-50); Mean Platelet Volume 11.9 fl (7.4-10.4); Monocytes # 0.3 K/mm3 (0.1-1.0); Monocytes % 9.8 % (1.7-9.3); Neutrophils # 1.2 K/mm3 (1.8-7.8); Neutrophils % 36.7 % (37.0-80.0); Platelet Count 194 K/mm3 (142-424); Red Cell Distribution Width 18.4 % (11.5-17.5)
== END 2024-11-12 23:59 | disposition home or self-care (01) ==
LOC: LAB.DROPOF 11-13 12:03
PROVIDERS: PCP Family Medicine; Visit Provider Family Medicine
DX: R00.2 Palpitations (principal); E78.2 Mixed hyperlipidemia
CPT/HCPCS: 80053; 85025

== ENCOUNTER 2025-02-23 10:17 | Day surgery (SDC) | payer MEDICARE, MEDICAID, SELFPAY ==
[2025-02-20 14:45] VITALS: BMI 15.3
--- NOTE | 2025-02-23 11:32 | P.PNANES_ITS ---
[facility] Disclaimer: The information contained in this section may have been updated after the patient was seen, as this information can be updated by other users. 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 Cervical stenosis (uterine cervix) Spinal stenosis Typical angina Chest pain Family History Other Family history of myocardial infarction Social History Smoking Status: Former smoker tobacco type: cigarettes packs per day: 5 alcohol intake: never substance use type: denies use current occupational status: retired Travel in the last 8 weeks: None household members: spouse housing: house current occupational exposures/hazards: No caffeine: Yes Have you lived/traveled outside [place] in past 30 days?: No Contact w/someone who lives/traveled outside US past 30 days?: No Exposure to someone with infectious disease in past 14 days?: No Do you have a fever (greater than 100.4 F or 38 C)?: No Have you tested positive for COVID-19: No Exposed to someone with COVID-19 in past 14 days?: No Do you have a sore throat?: No Do you have a cough?: No Do you have any weakness?: No Do you have any diarrhea?: No Are you experiencing any unusual bleeding?: No Do you have any muscle aches/pain?: No Do you have any abdominal pain?: No Are you experiencing loss of taste or smell?: No [facility] Anesthesia Checklist Patient Identification Patient Identification: Arm Band and Verbal (Name & ) Structural Data Admitted From: Home Planned Operative Procedure/s: G tube replcaement Consent for Planned Operative Procedure(s) Verified: Yes Verified Documents: Surgical Consent and History and Physical NPO Status Verified Time NPO: 11:00 (water) Additional verifications Anesthesia Reactions: No Airway Assessment Mallampati Score:: Class II Dentition: Poor Dentition Neurological Assessment Level of Consciousness: Awake, Alert and Appropriate Hx Seizures: No Numbness or tingling in extremities: No Anesthesia Plan Anesthesia Risk discussed: Yes Anesthesia Plan: Verified ASA Class: III Anesthesia Type: MAC
--- NOTE | 2025-02-23 11:42 | SUR.PREOP ---
Pt presents as a poor historian. med reconciliation unable to be obtained.
[2025-02-23 11:46] VITALS: BP 113/74; PULSE 81; RESP 16; TEMP 36.6; O2SAT 98
[2025-02-23] MEDS: CEFAZOLIN SODIUM 1 GM in 0.9 % SODIUM CHLORIDE 50 ML IV (12:27)
[2025-02-23 12:28] VITALS: O2SAT 100
--- NOTE | 2025-02-23 12:40 | EXP.HP ---
History of Present Illness *Admission Date: 02/23/25 *Reason for visit:: Feeding difficulties *History of present illness: Mrs. Bennett is a 79-year-old female with a prior history of thyroid cancer status post chemotherapy and neck radiation with dysphagia and high risk for aspiration who is here for gastrostomy tube placement and replacement. The examination is deemed medically necessary for gastrostomy tube. The patient has been seen, interviewed and examined prior to the procedure by both myself and the anesthesia provider. [facility] Disclaimer: The information contained in this section may have been updated after the patient was seen, as this information can be updated by other users. 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 Cervical stenosis (uterine cervix) Spinal stenosis Typical angina Chest pain Family History Other Family history of myocardial infarction Social History Smoking Status: Former smoker tobacco type: cigarettes packs per day: 5 alcohol intake: never substance use type: denies use current occupational status: retired Travel in the last 8 weeks: None household members: spouse housing: house current occupational exposures/hazards: No caffeine: Yes Have you lived/traveled outside US in past 30 days?: No Contact w/someone who lives/traveled outside US past 30 days?: No Exposure to someone with infectious disease in past 14 days?: No Do you have a fever (greater than 100.4 F or 38 C)?: No Have you tested positive for COVID-19: No Exposed to someone with COVID-19 in past 14 days?: No Do you have a sore throat?: No Do you have a cough?: No Do you have any weakness?: No Do you have any diarrhea?: No Are you experiencing any unusual bleeding?: No Do you have any muscle aches/pain?: No Do you have any abdominal pain?: No Are you experiencing loss of taste or smell?: No Other Medical History Have you received the Flu Vaccine for this season: Yes Have you received the Pneumonia Vaccine: Yes Review of Systems Review of Systems Review of systems (narrative): Negative *Cardiovascular Comments: Negative *Gastrointestinal Comments: Negative *Genitourinary Comments: Negative *Musculoskeletal Comments: Negative *Neurologic Comments: Negative Meds Home Medications and Allergies Home Medications ?Medication ?Instructions ?Recorded ?Confirmed ?Type albuterol sulfate 90 mcg/actuation 2 inh inhalation Q4-6H PRN 02/13/22 02/18/25 Rx breath activated powder inhaler shortness of breath or wheezing #1 ea budesonide-formoterol HFA 160 2 puff inhalation BID Asthma #10.2 02/13/22 02/18/25 Rx mcg-4.5 mcg/actuation aerosol grams inhaler cyanocobalamin (vitamin B-12) 1,000 mcg IM .[id number] Supplement 05/11/23 02/18/25 Rx 1,000 mcg/mL injection solution #10 mL gabapentin 100 mg capsule 100 mg PO HS PRN pain in feet #30 05/12/24 02/18/25 Rx caps atorvastatin 20 mg tablet 20 mg PO DAILY #90 tabs 07/21/24 02/18/25 Rx duloxetine 60 mg capsule,delayed See Rx Instructions .Route 07/21/24 02/18/25 Rx release .COMPLEX #90 tabs levothyroxine 88 mcg tablet 88 mcg PO DAILY hypothyroidism #90 07/21/24 02/18/25 Rx tabs omeprazole 20 mg capsule,delayed 20 mg PO DAILY #90 caps 07/21/24 02/18/25 Rx release fluoxetine 20 mg capsule (Prozac) 20 mg PO DAILY #90 caps 08/18/24 02/18/25 Rx ondansetron HCl 8 mg tablet See Rx Instructions .Route 08/18/24 02/18/25 Rx .COMPLEX #60 tabs sertraline 20 mg/mL oral 20 mg PO DAILY #60 mL 11/11/24 02/18/25 Rx concentrate donepezil 10 mg tablet 10 mg PO DAILY #90 tabs 12/03/24 02/18/25 Rx Celebrex 200 mg capsule (celecoxib) See Rx Instructions .Route 01/05/25 02/18/25 Rx .COMPLEX #90 caps diazepam 10 mg tablet 10 mg PO TID PRN anxiety 24 hours 02/05/25 02/18/25 Rx #90 tabs diphenoxylate-atropine 2.5 1 tab PO BID PRN diarrhea #30 tabs 02/05/25 02/18/25 Rx mg-0.025 mg tablet (Lomotil) ergocalciferol (vitamin D2) 1,250 1,250 mcg PO WEEKLY #14 caps 02/05/25 02/18/25 Rx mcg (50,000 unit) capsule sucralfate 100 mg/mL oral 10 ml PO QACHS #1,200 mL 02/05/25 02/18/25 Rx suspension (Carafate) alendronate 35 mg tablet 35 mg PO WEEKLY 02/13/25 02/18/25 History nitrofurantoin 100 mg PO BID 02/13/25 02/18/25 History monohydrate/macrocrystals 100 mg capsule (Macrobid) pantoprazole 40 mg tablet,delayed 40 mg PO DAILY 02/13/25 02/18/25 History release lactulose 10 gram/15 mL oral 10 g (15 mL) feeding tube DAILY 02/18/25 02/18/25 Rx solution #450 mL oxycodone 5 mg/5 mL oral solution 10 mg (10 mL) PO Q6H PRN pain 02/18/25 02/18/25 Rx #1,200 mL oxycodone 5 mg/5 mL oral solution 10 mg (10 mL) PO Q6H PRN pain 02/18/25 02/18/25 Rx #1,200 mL New Prescriptions to Start Prescriptions: Allergies Allergy/AdvReac Type Severity Reaction Status Date / Time fentanyl AdvReac Intermediate Vomiting Verified 02/23/25 11:27 Exam Data for Last 24 hours Vital signs and Labs for Last 24 Hours: Temp Pulse Resp BP Pulse Ox O2 Del Method O2 Flow Rate 97.8 F 81 16 113/74 98 Nasal Cannula 5 02/23/25 11:46 02/23/25 11:46 02/23/25 11:46 02/23/25 11:46 02/23/25 11:46 02/23/25 12:28 02/23/25 12:28 I & O for Last 24 hours: Intake & Output 02/20/25 02/21/25 02/22/25 02/23/25 23:59 23:59 23:59 23:59 Weight 94 lb 15.99 oz *Routine HEENT Exam Head: Present normocephalic Eye: Present EOMI and PERRL ENT: Present mucous membranes moist *Routine Neck Exam Neck: Present supple *Routine Respiratory Exam Respiratory: Present CTA bilaterally *Routine Cardiovascular Exam Cardiovascular: Present RRR *Routine Abdominal Exam Abdominal: Present soft and normoactive bowel sounds; Absent tenderness *Routine Rectal Exam Rectal:: deferred *Routine Genitalia Exam Genitalia:: deferred *Routine Extremities Exam Extremities: Absent cyanosis, clubbing or edema *Routine Skin Exam Skin: Present warm; Absent rash *Routine Neurological Exam Neurological: Present alert and oriented X3 Assessment and Plan *Assessment and plan (1) Feeding difficulties: Status: Acute Category: Medical Code(s): R63.30 - Feeding difficulties, unspecified (2) Dysphagia: Status: Acute Category: Medical Code(s): R13.10 - Dysphagia, unspecified (3) At risk for aspiration pneumonia: Status: Acute Category: Medical Code(s): Z91.89 - Other specified personal risk factors, not elsewhere classified Plan A/P: 1. Feeding difficulties at risk for aspiration secondary to chronic neck radiation with pharyngeal dysphagia is the preprocedural diagnosis. The patient will be anesthetized/sedated using MAC sedation. The patient has been seen and examined. Cardiac and lung assessment prior to the examination is stable. Proceed with planned gastrostomy tube placement
--- NOTE | 2025-02-23 12:43 | HMH.PROCNOTE ---
[facility] Procedure Note Date: 02/23/25 Time: 13:00 Procedure Note:: Upper Endoscopy Procedure Report: Esophagogastroduodenoscopy with endoscopic gastrostomy tube placement and TTS balloon dilation Endoscopost: Stalin Carreno II, MD Referring Physician: Andrew Quigley MD Date of Procedure: February 23, 2025 Equipment: Olympus GIF 190 standard upper endoscope Sedation: MAC sedation Indications: Mrs. Bennett is a 79-year-old female with a prior history of thyroid cancer status post chemotherapy and neck radiation. The patient developed pharyngeal dysphagia after radiation and is at high risk for aspiration. She did have gastrostomy tube placement 4 years ago and has had regular replacement of the gastrostomy tube every 6 to 9 months when the tube dislodges by Dr. Lincoln Monae in [place]. She did lose her G-tube 1 to 2 weeks ago and a catheter was placed through the stoma to keep the stoma patent. She is here today for G-tube replacement endoscopically. Procedure: Prior to the procedure, a history and physical exam was performed, and patient's medications and allergies were reviewed. The risks, benefits and alternatives of the sedation and procedure were discussed with the patient. All questions were answered and informed consent was obtained. The patient was brought to the procedure room. Patient identification and proposed procedure were verified by the physician and the nurse. The patient was placed in a left lateral decubitus position and the scope was passed under direct vision. Throughout the procedure, the patient's blood pressure, pulse, and oxygen saturations were monitored continuously. The upper GI endoscopy was accomplished without difficulty. The patient tolerated the procedure well. Findings: The scope was passed directly into the upper esophagus and advanced to the third portion of the duodenum. The post bulbar duodenum and duodenal bulb were normal with normal mucosa and conniventes. The scope was withdrawn through a normal duodenal bulb and pylorus into the stomach. The Arora catheter was in place with anterior gastric stoma. The Arora catheter was removed and a guidewire was placed through the stoma percutaneously. The guidewire was grasped with a snare endoscopically and this was pulled in a retrograde fashion out the oropharynx. Next, the pull gastrostomy tube was fixed to the guidewire and pulled in an antegrade fashion so that the button of the PEG was snugly against the gastric mucosa. This was confirmed endoscopically. After the PEG was placed, the remainder of the body and fundus of the stomach were normal. There was a stricture in the proximal esophagus that was gently dilated up to 18 mm with a TTS hydrostatic balloon (i.e. radiation stricture). After completion of the endoscopic procedure, the PEG was assembled appropriately. The remainder of the esophageal mucosa was normal. Impression: 1. Dysphagia at high risk for aspiration and feeding difficulties status post percutaneous endoscopic gastrostomy tube placement 2. 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 I would recommend replacement regardless every 6 to 12 months if it is not dislodged to replace the G-tube because of the natural changes of corrosion and intermittent occlusion of old gastrostomy tubes. I will discuss the findings with the patient and family.
[2025-02-23 13:05] VITALS: BP 130/62; PULSE 71; RESP 16; TEMP 36.1; O2SAT 100
[2025-02-23 13:12] VITALS: BP 108/46; PULSE 71; RESP 17; O2SAT 98
[2025-02-23 13:22] VITALS: BP 120/62; PULSE 76; RESP 16; O2SAT 96
[2025-02-23 13:32] VITALS: BP 119/70; PULSE 70; RESP 16; TEMP 36.2; O2SAT 97
== END 2025-02-23 13:32 | disposition home or self-care (01) ==
PROVIDERS: PCP Family Medicine; Visit Provider Internal Medicine Gastroenterology
PROC: 0DH63UZ Insertion of Feeding Device into Stomach, Percutaneous Approach (ICD-10-PCS; CPT 43246; principal; 2025-02-23 12:00)
DX: K22.2 Esophageal obstruction (principal); R63.30 Feeding difficulties, unspecified; R13.10 Dysphagia, unspecified; Z91.89 Other specified personal risk factors, not elsewhere classified
CPT/HCPCS: 43246; 43249; C1726; J0690

== ENCOUNTER 2025-02-27 10:37 | Outpatient (CLI) | payer MEDICARE, MEDICAID, SELFPAY ==
--- NOTE | 2025-02-27 10:30 | CA_ITS ---
APPROVED REPORT EXAM: Comprehensive 2D, Doppler, and color-flow Echocardiogram Congressional Assistant: Mar Chong RDCS Ht: 5 ft 6 in Wt: 95lbs BSA: 1.46 BP: 140/68 mmHg Indications: LVH,COPD,HLP,CAD,PP, TDS LIMITED WINDOWS M-Mode Dimensions RVDd 2.13 cm (0.9-2.6) LA Diam 3.03 cm (1.9-4.0) LVDd 3.47 cm (3.5-5.7) LVDs 2.39 cm (3.5-5.7) IVSd 0.93 cm (0.6-1.1) PWd 0.87 cm (0.6-1.1) EF (Teich) 59.80% FS 31.10% EDV (Teich) 49.80 mL ESV (Teich) 20.00 mL Tricuspid Valve TR P. Velocity 302.00 cm/s RAP Estimate 10.00 mmHg RVSP 46.50 mmHg Left Ventricle The left ventricle is normal size. The left ventricular systolic function is normal. The left ventricular ejection fraction is within the normal range. There is increased LV wall thickness. There is normal LV segmental wall motion. Diastolic function is indeterminate. LVEF is 55%. Right Ventricle Right ventricle is mildly dilated. The right ventricular systolic function is normal. Atria The left atrium is mildly dilated. The right atrium is mildly dilated. There is no Doppler evidence of interatrial shunt. Aortic Valve There is limited assessment of the aortic valve due to technically difficult study. Grossly, the aortic valve is mildly thickened. There is no aortic valvular stenosis. Trace aortic regurgitation. Mitral Valve There is limited assessment of the mitral valve due to technically difficult study. Grossly, the mitral valve is normal in structure. Trace mitral regurgitation. Tricuspid Valve Tricuspid valve is grossly normal in structure and function. Mild to moderate tricuspid regurgitation. RVSP is 35-40 mmHg. Pulmonic Valve The pulmonary valve is not well visualized. Great Vessels The aortic root is normal in size. IVC is normal in size and collapses >50% with inspiration. Pericardium There is no pericardial effusion. Other Information Study Quality: Technically Difficult. Technically limited study due to inability to position patient. Conclusion Technically difficult study due to poor accoustic windows. Normal biventricular systolic function. Mild RV dilation. Mild biatrial dilation. Mild to moderate TR. Elevated RVSP 35-40 mmHg. The assessment of the remaining valves is limited due to technically difficult study. Electronically signed by : Radha Bullock MD 03/08/2025 15:01:10
== END 2025-02-27 23:59 | disposition home or self-care (01) ==
LOC: RT 10:37
PROVIDERS: PCP Family Medicine; Visit Provider Nurse Practitioner
DX: I51.7 Cardiomegaly (principal); I36.1 Nonrheumatic tricuspid (valve) insufficiency; Z95.0 Presence of cardiac pacemaker
CPT/HCPCS: 93306

== ENCOUNTER 2025-08-21 12:00 | Outpatient (CLI) | payer MEDICARE, MEDICAID, SELFPAY ==
--- OUTSIDE RECORDS SUMMARY | 2025-08-24 10:47 | XMS_ITS | Clinical Summary ---
Author Organization [facility] Address [address] [place] [address] Phone Care Team Providers Care Enterprise Application Analyst Name Role Phone Unavailable Unavailable Conditions or Problems No information available. Medications No information available. Medications Administered No information available. Allergies, Adverse Reactions, Alerts No information available. Results No information available. Plan of Care No information available. Procedures No information available. Vital Signs No information available. Immunizations No information available. Advance Directives No information available.
--- OUTSIDE RECORDS SUMMARY | 2025-08-24 10:47 | XMS_ITS | Clinical Summary ---
Author Organization [facility] Address [address] [facility] [address] [place] [address] Phone Care Team Providers Care Nursing Assoc Name Role Phone Shanti Harrison Conditions or Problems Problem Name Problem Code Onset Date Status Entry Date Provider Comment Standard Description Annotate BREAKDOWN (MECHANICAL) OF IMPLANTED ELECTRONIC NEUROSTIMULAT OR, GENERATOR, INITIAL ENCOUNTER 845759404 (SNOMED CT) 01/02 Active 01/28 Cinthia Anderson Mechanical complication of nervous system device *AFTERCARE FOLLOW SURGERY, NERVOUS SYSTEM NEC Z48.811 (ICD-10-CM ) 01/14 Active 01/14 Ayesha Young MA Encounter for surgical aftercare following surgery on the nervous system OTHER SPECIFIED PREOPERATIVE EXAMINATION Z01.818 (ICD-10-CM ) 12/09 Active 12/24 Ebonie Hernández MA Encounter for other preprocedural examination BREAKDOWN (MECHANICAL) OF IMPLANTED ELECTRONIC NEUROSTIMULAT OR OF SPINAL CORD ELECTRODE (LEAD), INITIAL ENCOUNTER T85.112A (ICD-10-CM ) 12/09 Active 12/09 Ayesha Young MA Breakdown (mechanical) of implanted electronic neurostimulator of spinal cord electrode (lead), initial encounter SPONDYLOSIS, LUMBAR [id number] (SNOMED CT) 03/05 Active 03/05 Wing Ann MA Lumbosacral spondylosis FOLLOW-UP EXAMINATION FOLLOWING OTHER SURGERY Z09 (ICD-10-CM ) 08/12 Active 08/12 Guanaco Bridges MD Encounter for follow-up examination after completed treatment for conditions other than malignant neoplasm LUMBAR RADICULOPATHY [id number] (SNOMED CT) 07/19 Active 07/19 Guanaco Bridges MD Lumbar radiculopathy DEGENERATIVE DISC DISEASE, LUMBAR SPINE [id number] (SNOMED CT) 07/19 Active 07/19 Guanaco Bridges MD Degeneration of lumbar intervertebral disc Medications Medication Instructions Start Date Stop Date Generic Name NDC Provider HIBICLENS 4 % EXTERNAL LIQUID Wash the back and the left hip/buttock area the night prior to the surgery 01/14 CHLORHEXIDINE GLUCONATE [id number] Ayesha Young MA HIBICLENS 4 % EXTERNAL LIQUID Wash the back and the left hip/buttock area the night prior to the surgery 01/14 CHLORHEXIDINE GLUCONATE [id number] Guanaco Bridges MD HM VITAMIN B6 TABLET 1 daily Non-[place] PYRIDOXINE HCL TABS 14201248262 Ayesha Young MA ARICEPT 5 MG TABS 1 daily Non-[place] DONEPEZIL HCL 34063389381 Ayesha Young MA ONDANSETRON HCL 4 MG TABS prn - ONDANSETRON HCL 63225102688 Ayesha Young MA PANTOPRAZOLE SODIUM 20 MG TBEC 1 daily -[place] PANTOPRAZOLE SODIUM 21380371741 Ayesha Young MA NITROFURANTOIN MACROCRYSTAL 100 MG CAPS 1 daily Non-[place] NITROFURANTOIN MACROCRYSTAL 49593569328 Ayesha Young MA OXYCODONE HCL 10 MG TABS 4-5 per day -[place] OXYCODONE HCL 36025443437 Ayesha Young MA B-12 COMPLIANCE INJECTION 1000 MCG/ML INJECTION KIT 1 per week -[place] CYANOCOBALAMIN 30842935696 Ayesha Young MA CELEBREX 200 MG CAPS 1 daily -[place] CELECOXIB 22973904638 Ayesha Young MA DIAZEPAM 10 MG TABS 1 bid prn -[place] DIAZEPAM 14234337370 Ayesha Young MA PERCOCET 10-325 MG TABS 1 po q 4-6 hours prn pain 12/09 OXYCODONE-ACETAMI NOPHEN 51682154394 Ayesha Young MA VITAMIN B-12 1000 MCG/15ML LIQD 1 per week Non-[place] 12/09 CYANOCOBALAMIN 56013742128 Ayesha Young MA DIAZEPAM 10 MG TABS 1-1 1/2 daily prn Non-[place] 12/09 DIAZEPAM [id number] Ayesha Young MA SIMVASTATIN 20 MG TABS 1 daily Non-[place] 12/09 SIMVASTATIN 18153177752 Ayesha Young MA VITAMIN D (ERGOCALCIFEROL) 1.25 MG (36143 UT) CAPS 1 every 4 days Non-[place] 12/09 ERGOCALCIFEROL 17861248864 Ayesha Young MA CYCLOBENZAPRINE HCL 10 MG TABS 1-2 daily Non-[place] 12/09 CYCLOBENZAPRINE HCL 95256599502 Ayesha Young MA ADULT ASPIRIN LOW STRENGTH 81 MG ORAL TABLET DISINTEGRATING 1 daily Non-[place] 12/09 ASPIRIN 15237143032 Ayesha Young MA ALEVE 220 MG TABS 1 daily Non-[place] 12/09 NAPROXEN SODIUM 96769589628 Ayesha Young MA DETROL LA 4 MG ORAL CAPSULE EXTENDED RELEASE 24 HOUR 1 daily Non-[place] 12/09 TOLTERODINE TARTRATE 95001971757 Ayesha Young MA NITROFURANTOIN MACROCRYSTAL 50 MG CAPS 1 prn Non-[place] 12/09 NITROFURANTOIN MACROCRYSTAL 08834199157 Ayesha Young MA PREMARIN 0.625 MG TABS 1 daily Non-[place] 12/09 ESTROGENS CONJUGATED 71100952693 Ayesha Young MA OMEPRAZOLE 20 MG TBEC prn Non-[place] 12/09 OMEPRAZOLE 86341793840 Ayesha Young MA CELEBREX 200 MG CAPS 1 daily Non-[place] 12/09 CELECOXIB [id number] Ayesha Young MA HYDROCODONE-ACETAM INOPHEN 7.5-500 MG ORAL TABLET 1 tid Non-[place] 12/09 HYDROCODONE-ACETA MINOPHEN [id number] Ayesha Young MA PERCOCET 10-325 MG TABS 1 po q 4-6 hours prn pain 0 12/09 OXYCODONE-ACETAMI NOPHEN 98619954414 Guanaco Bridges MD HIBICLENS 4 % EXTERNAL LIQUID Wash the lower back and both hip/buttock areas the night prior to the surgery 08/12 CHLORHEXIDINE GLUCONATE [id number] Guanaco Bridges MD HIBICLEМАРИНА 4 % EXTERNAL LIQUID Wash the lower back and both hip/buttock areas the night prior to the surgery 12/05 CHLORHEXIDINE GLUCONATE [id number] Guanaco Bridges MD VITAMIN B-12 1000 MCG/15ML LIQD 1 per week -[place] 12/09 CYANOCOBALAMIN [id number] Guanaco Bridges MD DIAZEPAM 10 MG TABS 1-1 1/2 daily prn [facility] 0 DIAZEPAM [id number] Guanaco Bridges MD SIMVASTATIN 20 MG TABS 1 daily Non-[place] 12/09 SIMVASTATIN [id number] Guanaco Bridges MD VITAMIN D (ERGOCALCIFEROL) 1.25 MG (87877 UT) CAPS 1 every 4 days [facility] 12/09 ERGOCALCIFEROL [id number] Guanaco Bridges MD CYCLOBENZAPRINE HCL 10 MG TABS 1-2 daily Non-[place] 12/09 CYCLOBENZAPRINE HCL [id number] Guanaco Bridges MD ADULT ASPIRIN LOW STRENGTH 81 MG ORAL TABLET DISINTEGRATING 1 daily Non-[place] 12/09 ASPIRIN 57118173904 Guanaco Bridges MD ALEVE 220 MG TABS 1 daily Non-[place] 0 3/16 NAPROXEN SODIUM 72544980139 Guanaco Bridges MD DETROL LA 4 MG ORAL CAPSULE EXTENDED RELEASE 24 HOUR 1 daily Non-[place] 0 03/17 TOLTERODINE TARTRATE 96927794481 Guanaco Bridges MD NITROFURANTOIN MACROCRYSTAL 50 MG CAPS 1 prn [facility] 12/01 NITROFURANTOIN MACROCRYSTAL 59195648726 Guanaco Bridges MD PREMARIN 0.625 MG TABS 1 daily [facility] 12/09 ESTROGENS CONJUGATED 85896879126 Guanaco Bridges MD OMEPRAZOLE 20 MG TBEC prn [facility] 12/09 OMEPRAZOLE 20237849071 Guanaco Bridges MD CELEBREX 200 MG CAPS 1 daily [facility] 12/09 CELECOXIB [id number] Guanaco Bridges MD HYDROCODONE-ACETAM INOPHEN 7.5-500 MG [facility] HYDROCODONE-ACETA MINOPHEN 07619804573 Guanaco Bridges MD Medications Administered No information available. Allergies, Adverse Reactions, Alerts Observed No Known Drug Allergies at Results No information available. Plan of Care Type Date Detail Pending order X-Ray Thoracic A P & Lateral Pending order CBC Pending order Renal function p kuldip with BUN Pending order EKG Pending order X-Ray Thoracic A P & Lateral Patient education LUMBAR%20RADIC ULOPATHY Procedures Code Procedure Name Date Entry Date [facility]-[id number] Flu Shot Previously Received [facility]-[id number] Tobacco Cessation Counseling Performed 2 [id number] Pneumonia Vaccine Previously Received 14/01/19 [id number] Medications Documented [id number] Flu Shot Previously Received [id number] Tobacco Cessation Counseling Performed 2 [id number] Pneumonia Vaccine Previously Received 14/12/13 [id number] Medications Documented 1123F ACP/POA documented 0 G8482 Flu shot received 4040F Pneumococcal vaccine received 4004F Tobacco user- receiv ed cessation information G8417 BMI above normal, f/u plan documented 201 05/29/10 G8730 Pain Assessment posi tive with follow up plan G8427 Medication Reconcili ation Completed CPT-G8427 [facility]-[id number] Flu Shot Previously Received [id number] Medications Documented [id number] Pneumonia Vaccine Previously Received 20 12/03/10 Vital Signs Date Name Value Unit Description BMI (Body Mass Index) 20.33 kg/m2 Bod y Mass Index (Ratio) Height 66 [in_us] height E&M Weight Measured 126 [lb_av] weight E& M Weight Measured 126 [lb_av] weight E& M BP Diastolic 64 mm[Hg] blood pressu re, diastolic BP Systolic 114 mm[Hg] blood pressur e, systolic Heart Rate 71 /min pulse rate Immunizations No information available. Advance Directives No information available.
--- OUTSIDE RECORDS SUMMARY | 2025-08-24 10:49 | XMS_ITS | Clinical Summary ---
Author Organization [facility] Address [address] [place] [address] Care Team Providers Care Chain Testing Machine Operator Name Role Phone Andrew Quigley MD Primary Care Provider [phone] Allergies Active Allergy Reactions Criticality Noted Date Comments Fentanyl Nausea And Vomiting High 01/21/2025 Medications alendronate (FOSAMAX) 35 mg Tablet Take 35 mg by mouth once weekly. Active celecoxib (CeleBREX) 200 mg Capsule Take 200 mg by mouth daily. Active atorvastatin (LIPITOR) 40 mg Tablet Take 40 mg by mouth nightly at bedtime. Active diazePAM (VALIUM) 5 mg/5 mL (1 mg/mL) Solution 5 mg by Per G Tube route every 8 hours. Active donepeziL (ARICEPT) 10 mg Tablet Take 10 mg by mouth nightly at bedtime. Active DULoxetine (CYMBALTA) 60 mg Capsule, Delayed Release(E.C.) Take 60 mg by mouth daily. Active gabapentin (NEURONTIN) 100 mg capsule Take 100 mg by mouth nightly at bedtime. Active vit C-vit L-Mp-Sv-lutein-ze ax (ICaps AREDS2, copper citrate,) 250 mg-200 unit -12.5 mg-1 mg Tablet, Chewable Take by mouth. Active levothyroxine (SYNTHROID) 88 mcg tablet Take 88 mcg by mouth daily. Active nitrofurantoin (MACRODANTIN) 50 mg capsule Take 50 mg by mouth every 6 hours. Active OMEPRAZOLE PO Take 40 mg by mouth. Active ondansetron (ZOFRAN) 8 mg tablet Take 8 mg by mouth every 12 hours as needed for Nausea or Vomiting. Active oxyCODONE (ROXICODONE) 5 mg/5 mL solutionIndicatio ns:pain Take 5 mg by mouth every 4 hours as needed for Pain. Indications: pain Active sertraline (ZOLOFT) 20 mg/mL concentrated solution Take 50 mg by mouth daily. Active sucralfate (CARAFATE) 100 mg/mL suspension Take 1 g by mouth every 6 hours. Active budesonide-formot José Miguel (SYMBICORT) 80-4.5 mcg/actuation HFA Aerosol Inhaler Take by inhalation 2 times daily. Active Active Problems Problem Noted Date Diagnosed Date Dysphagia 01/21/2025 Severe malnutrition 01/21/2025 Dislodged gastrostomy tube 01/21/2025 IBS (irritable bowel syndrome) 01/21/2025 Social History Tobacco Use Types Packs/Day Years Used Date Smoking Tobacco: Former Cigarettes Q uit: 2020 Tobacco Cessation:Counseling Given: Not Answered Alcohol Use Standard Drinks/Week Comments Not Currently 0 (1 standard drink = 0.6 oz pur e alcohol) Comments Unknown Sex and Gender Information Value Date Recorded Sex Assigned at Not on file Legal Sex Female 12:23 PM EST Gender Identity Not on file Sexual Orientation Not on file Last Filed Vital Signs Vital Sign Reading Time Taken Comments Blood Pressure 125/71 01/21/2025 3:00 PM EST Pulse 62 01/21/2025 3:00 PM EST Temperature 36.5 C (97.7 F) 01/21/2025 11:00 AM EST Respiratory Rate 16 01/21/2025 3:00 PM EST Oxygen Saturation 96% 01/21/2025 3:00 PM EST Inhaled Oxygen Concentration - - Weight 43.8 kg (96 lb 8 oz) 01/21/2025 11:00 AM EST Height 167.6 cm (5' 6 ) 01/21/2025 11:00 AM EST Body Mass Index 15.58 01/21/2025 11:00 AM EST Plan of Treatment Health Maintenance Due Date Last Done Comments Lipid Monitoring 1963 Hepatitis C Virus (HCV) Screening 1967 Pneumococcal Vaccine: 50+ Ye ars (1 of 1 - PCV) 1996 Fall Risk Assessment 2011 Osteoporosis Screening 2011 RSV Vaccines (1 - 1-dose 75+ series) 2021 Zoster-RZV(Shingrix) (2 of 2) 11/20/2023 09/25/2023 Advance Care Planning 11/26/2024 BMI Counseling 11/26/2024 Depression Screening 11/26/2024 COVID-19 Vaccine (6 - 2024-2 6 season) 2025 12/06/2022, 03/22/2022, 08/24/2021, Additional history exists Influenza Vaccination (#1) 07/27/202509/15, 10/13/2022, 09/07/2020, Additional history exists Tetanus Vaccination (Every 1 0 Years) 11/12/2027 11/12/2017 Insurance [employer] MEDICARE MEDICAID [place] Care Teams Chain Testing Machine Operator Relationship Specialty [place] [address] [place] [address] PCP - General Family Medicine 01/21/25
--- OUTSIDE RECORDS SUMMARY | 2025-08-24 10:49 | XMS_ITS ---
Author Organization [facility] Address [address] [place] [address] Phone Care Team Providers Care Senior Planning Manager Name Role Phone Hernandez Yeboah MD Unavailable Jennifer Nick MD Unavailable [phone] Andrew Quigley MD Primary Care Provider [phone] Hao Robins MD Unavailable Kelly Ling MD Unavailable [phone] Alda Farias MD Unavailable [phone] Active Problems * This document contains information received from the source organization and may not represent a complete record from that organization. Patient Care Coordination No te Formatting of this note migh t be different from the original. Controlled Contract Signed 05/14/14 Informed Consent Signed 05/14/14 UDS 10/15/19 (Getting pain med from oncology) Yoana as expected 10/15/19 Narcotics from norma Martinez from PCP Yoana IBRAHIM Controlled report completed 12/27/2017 Informed consent signed 12/26/2017 Request #[id number] yoana as expected 01/25/2021 06/06/22 YOANA #[id number] (not as expected) Micky Kennedy MD Problem Noted Date Diagnosed Date Lumbar radiculopathy 01/08/2023 Overview (01/08/2023): Added automatically from request for surgery [id number] Foraminal stenosis of lumbar region 01/08/2023 Overview (01/08/2023): Added automatically from request for surgery [id number] Bilateral carotid artery stenosis 06/06/2022 Former smoker - quit 201706/06/2022 Iron deficiency anemia, unspecified 11/18/2020 Malabsorption syndrome 11/18/2020 Attention to gastrostomy 11/01/2020 Overview (11/01/2020): Added automatically from request for surgery [id number] Assessment & Plan (03/20/2023 5:33 PM EDT): Recently replaced in ER with diaz catheter. This was replaced at the bedside today with a replacement 18Fr G-tube without issues. Follow up prn. 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 01/16/2018 Mass of epiglottis 12/27/2017 Overview (12/27/2017): Added automatically from request for surgery [id number] Oropharyngeal dysphagia 12/27/2017 Overview (12/27/2017): Added automatically from request for surgery [id number] Spinal stenosis 10/03/2017 Spondylosis of lumbar region without myelopathy or radiculopathy 05/17/2017 Anxiety and depression 02/14/2017 Varicose veins of both lower extremities with pa in 07/24/2016 Essential hypertension 02/08/2016 Memory loss 05/06/2015 S/P MVR (mitral valve repair) 10/22/2014 Overview (02/10/2015): 10/21/14 - Robotic Mitral Valve Repair and annular ring - Dr. Rosen. Cigarette nicotine dependenc e with nicotine-induced disorder 08/26/2014 Psoriasis 08/14/2014 MVP (mitral valve prolapse) 08/14/2014 Overview (08/14/2014): ECHO 03/24/13 [place] Mitral regurgitation 08/14/2014 Vitamin D deficiency 02/11/2014 B12 deficiency 02/11/2014 Overview (02/11/2014): Gives herself injections. Chronic UTI 02/11/2014 Heart murmur 01/14/2014 Osteoarthritis 01/14/2014 DDD (degenerative disc disease), cervical 2013 DDD (degenerative disc disease), lumbar 01/14/20 14 Overview (09/22/2016): Seeing Dr. Lemus/Dr. Patel for her narcotics. GERD (gastroesophageal reflux disease) 4 HLD (hyperlipidemia) 01/14/2014 Urinary incontinence 01/14/2014 Anxiety 01/14/2014 Current Treatment and Therapy Plans No current plan information found. Past Treatment and Therapy Plans ONCOLOGY TREATMENT Plan Name Start Date Discontinue Date Treatment Medications Discontinue Reason Plan Provider Cycles ONCSEH CISplatin (40) + XRT WEEKLY 01/31/2018 05/18/2022 CISplatin (PLATINOL) chemo infusion (1000 mL) Therapy Complete Ronnie Solorio MD 7 of 7 cycles started THERAPY Plan Name Start Date Discontinue Date Treatment Medications Discontinue Reason Plan Provider ONCSEH PORT/PICC FLUSH 03/19/2018 11/18/2020 No medications scheduled. Therapy Complete Ronnie Solorio MD Resolved Problems Problem Noted Date Diagnosed Date Resolved Date Acute respiratory failure wi th hypoxia and hypercarbia 01/18/2020 02/04/2020 Altered mental status 01/17/20202019 Overview (01/18/2020): -CT Head (@ [facility] 01/15/20) - No acute abnormality. Microangiopathic white matter degeneration greater than cortical atrophy. Last mastoiditis and moderate diffuse chronic paranasal sinusitis. Fluid levels in the sphenoid air cells suggest acute rhinisinusitis. 

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
--- OUTSIDE RECORDS SUMMARY | 2025-08-24 10:49 | XMS_ITS | Clinical Summary ---
Author Organization Healthcare Address [address] [place] [address] Care Team Providers Care Assistant Spa Director Name Role Phone Unavailable Primary Care Provider Unavailabl e Social History Tobacco Use Types Packs/Day Years Used Date Smoking Tobacco: Never Assessed Comments Unknown Sex and Gender Information Value Date Recorded Sex Assigned at Not on file Legal Sex Female 12:04 PM EDT Gender Identity Not on file Sexual Orientation Not on file Plan of Treatment Health Maintenance Due Date Last Done Comments [facility]-Bone Density Scan 1946 [facility]-Depression Screening 1946 [facility]-Hepatitis C Screening 1945 [facility]-Medicare Annual Wellness (AWV) 1945 [facility]-Infant/Child/Adol SDOH Screenings 1946 [facility]- SDOH Screenings 1964 [facility]-Adult SDOH Screenings 1964 [facility]-Zoster Vaccines (1 of 2) 1996 [facility]-RSV Vaccine: 60+ Years or (1 - 1-dose 75+ series) 2021 [id number] Vaccine ( season) 2025 12/06/2022, 03/22/2022, 08/24/2021, Additional history exists [facility]-Influenza Vaccine (#1) 07/27/202510/12, 08/26/2013, 2012 [facility]-DTaP,Tdap,and Td Vaccines (2 - Td or Tdap) 11/12/2027 11/12/2017 [facility]-Pneumococcal Vaccine: 50+ Years Completed 09/07/2020, 10/15/2019, 05/10/2016, Additional history exists HPV Vaccines Aged Out No longer eligi ble based on patient's age to complete this topic [facility]-HIB Vaccines Aged Out No longer e ligible based on patient's age to complete this topic [facility]-Hepatitis A Vaccines Aged Out No longer eligible based on patient's age to complete this topic [facility]-IPV Vaccines Aged Out No longer e ligible based on patient's age to complete this topic [facility]-Rotavirus Vaccines Aged Out No lo nger eligible based on patient's age to complete this topic Insurance [id number]
--- OUTSIDE RECORDS SUMMARY | 2025-08-24 10:50 | XMS_ITS | Clinical Summary ---
Author Organization [facility] Address [address] [place] [id number] Care Team Providers Care Credit Products Officer Name Role Phone Kristy Feliz MD Primary Care Provider [phone] Source Comments This information has been disclosed to you from confidential records protectedfrom disclosure by state law. You shall make no further disclosure of thisinformation without the specific, written, and informed release of theindividual to whom it pertains, or as otherwise permitted by law. A generalauthorization for the release of medical or other information is not sufficientfor the purposes of therelease of HIV test results or diagnoses. [id number] Allergies Active Allergy Reactions Criticality Noted Date Comments Fentanyl Nausea And Vomiting Medium 01/09/2023 Medications ATORVASTATIN CALCIUM (ATORVASTATIN ORAL) Take by mouth. 40mg Active clobetasol (TEMOVATE) 0.05 % ointmentIndication s:Psoriasis Apply topically 2 times a day. Apply during week days 60 g 4 06/28/20 16 Active calcipotriene (DOVONOX) 0.005 % ointment Apply topically 2 times a day. On weekends 60 g 11 06/28/20 16 Active oxyCODONE (ROXICODONE) 5 mg/5 mL solution Take by mouth. Active diazePAM (VALIUM) 10 MG tablet 2 02/05/20 18 Active dicyclomine (BENTYL) 10 MG capsule Take by mouth. 04/03/20 18 Active gabapentin (NEURONTIN) 300 MG capsule Take by mouth. 04/03/20 18 Active ondansetron (ZOFRAN-ODT) 8 MG disintegrating tablet 1 02/26/20 18 Active budesonide-formote rol (SYMBICORT) 160-4.5 mcg/actuation inhaler Inhale into the lungs. 04/03/20 18 Active bisoprolol (ZEBETA) 5 MG tablet Take by mouth. 04/03/20 18 Active alendronate (FOSAMAX) 35 MG tablet 3 02/06/20 18 Active donepezil (ARICEPT) 10 MG tablet Take by mouth. 04/03/20 18 Active buPROPion SR (WELLBUTRIN SR) 150 MG tablet Take by mouth. 04/03/20 18 Active CELEBREX 200 mg capsule 1 02/05/20 18 Active lidocaine-prilocai ne (EMLA) cream 03/21/20 18 Active silver sulfADIAZINE (SILVADENE) 1 % cream 03/11/20 18 Active cyanocobalamin (VITAMIN B-12) 1,000 mcg/mL injection 5 02/05/20 18 Active VITAMIN D2 50,000 unit capsule 2 02/05/20 18 Active ranitidine (ZANTAC) 15 mg/mL syrup 05/03/20 18 Active sertraline (ZOLOFT) 20 mg/mL concentrated solution 08/28/20 18 Active AMOXicillin (AMOXIL) 400 mg/5 mL suspension 02/20/20 19 Active omeprazole (PRILOSEC) 20 MG capsule Take 1 capsule (20 mg total) by mouth every morning before breakfast. Active aspirin 81 MG chewable tablet Chew 1 tablet (81 mg total) by mouth daily. 02/14/20 22 Active DULoxetine (CYMBALTA) 60 MG capsule Take 1 capsule (60 mg total) by mouth daily. 05/21/20 Active levothyroxine (SYNTHROID) 88 MCG tablet TAKE 1 TABLET BY MOUTH EVERY DAY FOR HYPOTHYROIDISM 03/10/20 22 Active pravastatin (PRAVACHOL) 20 MG tablet TAKE ONE (1) TAB BY MOUTH EVERY EVENING. 05/21/20 20 Active traZODone (DESYREL) 100 MG tablet Take 1 tablet (100 mg total) by mouth at bedtime. 03/10/20 22 Active tolterodine (DETROL LA) 2 MG 24 hr capsule Take 1 capsule (2 mg total) by mouth daily. 06/15/20 21 Active sucralfate (CARAFATE) 100 mg/mL suspension Take by mouth. 06/23/20 20 Active PROAIR HFA 90 mcg/actuation inhaler INHALE TWO (2) INH INHALATION EVERY 4-6 HOURS NEEDED FOR SHORTNESS OF BREATH OR WHEEZING 02/14/20 22 Active clopidogreL (PLAVIX) 75 mg tablet Take 1 tablet (75 mg total) by mouth daily. Active Active Problems Problem Noted Date Diagnosed Date Carotid stenosis, asymptomatic, bilateral 2021 Oropharyngeal dysphagia 02/27/2019 Social History Tobacco Use Types Packs/Day Years Used Date Smoking Tobacco: Former Cigarettes Q uit: 01/04/2018 Smokeless Tobacco: Never Tobacco Cessation:Counseling Given: Not Answered Alcohol Use Standard Drinks/Week Comments No 0 (1 standard drink = 0.6 oz pur e alcohol) PHQ-2 Answer Date Recorded PHQ-2 Total Score 1 05/24/2022 Comments No Sex and Gender Information Value Date Recorded Sex Assigned at Not on file Legal Sex Female 3:51 PM EDT Gender Identity Not on file Sexual Orientation Not on file Last Filed Vital Signs Vital Sign Reading Time Taken Comments Blood Pressure 92/50 07/02/2024 10:41 AM EDT Pulse 68 07/02/2024 10:41 AM EDT Temperature 36.4 C (97.5 F) 07/02/2024 10:41 AM EDT Respiratory Rate 16 07/02/2024 10:41 AM EDT Oxygen Saturation 90% 07/02/2024 10:41 AM EDT Inhaled Oxygen Concentration 90% 07/02/2024 1 0:41 AM EDT Weight 49 kg (108 lb) 05/28/2023 2:13 PM EDT Height 167.6 cm (5' 6 ) 05/28/2023 2:13 PM EDT Body Mass Index 17.43 05/28/2023 2:13 PM EDT Plan of Treatment Health Maintenance Due Date Last Done Comments Alcohol Misuse Screening 1963 Immunization: Zoster (1 of 2) 1996 Osteoporosis Screening (DXA Scan) 1996 Lung Cancer Screening 09/30/2020 09/30/2019 , 02/26/2019, 09/25/2018, Additional history exists Immunization: RSV (Adult) (1 - 1-dose 75+ series) 2021 Depression Screening 05/24/2023 05/24/2022, 10/15/2019, 09/25/2018 Immunization: COVID-19 ( season) 2025 12/06/2022, 03/22/2022, 08/24/2021, Additional history exists Immunization: Influenza (MyC belle) (#1) 2025 10/13/2022, 10/12/2021, 09/07/2020, Additional history exists Immunization: DTaP/Tdap/Td ( 2 - Td or Tdap) 11/12/2027 11/12/2017 Immunization: Pneumococcal Completed 09/07, 10/15/2019, 05/10/2016, Additional history exists Procedures Procedure Name Priority Date/Time Associated Diagnosis Comments CT CHEST WITH IV CONTRAST Routine 09/30/2019 2:42 PM EST Larynx cancer ([facility]) from Last 3 Months or Most Recently Relevant to Health Maintenance Results * CT Chest With IV contrast (09/30/2019 2:42 PM EST) Anatomical Region Laterality Modality Chest Computed Tomogra phy 09/30/2019 2:24 PM EST Impressions 09/30/2019 3:19 PM EST IMPRESSION: Near complete resolution of subpleural masslike consolidation in the left lower lobe with residual scarring/atelectasis. Patchy groundglass and consolidative opacities in both lower lobes, improved on the left but worse on the right, with interval development of a spiculated and partially cavitary nodule in the right lower lobe as described above, compatible with an infectious/inflammatory etiology, to include aspiration pneumonitis. Subpleural nodule in the medial right lower lobe is no longer visible, and was likely infectious/inflammatory. Report Verified by: Haja Fabian DO at 09/30/2019 3:19 PM EST Narrative 09/30/2019 3:19 PM EST EXAM: CT CHEST WITH IV CONTRAST CLINICAL HISTORY: larynx cancer; COMPARISON: Multiple priors, most recent February 26, 2019 TECHNIQUE: Multidetector CT imaging was obtained through the chest in the supine position without intravenous contrast. The images were reconstructed with 5 and 1 mm collimation. Additional axial MIP images were reconstructed. FOV: 32 cm FINDINGS: LOWER NECK: Please see the separate CT neck dictation from the same day for details. HEART: The heart is normal in size. No significant pericardial effusion. Severe calcified plaque/stents in the right ureter is within the coronary arteries. Mitral annular calcifications. THORACIC AORTA: Normal caliber and contour. Usual 3-vessel branch configuration of a left aortic arch. There are scattered calcified atherosclerotic plaques noted throughout the aorta and its branches. PULMONARY ARTERIES: Normal in caliber. MEDIASTINUM AND JONATHAN: No pathologically enlarged lymph nodes are identified. CHEST WALL AND AXILLA: An internal jugular approach port catheter tip terminates in the SVC. Stimulator leads are present within the spinal canal. PLEURA: No pleural effusions or pneumothorax. AIRWAYS & LUNGS: The central airways are patent. There are scattered areas of subsegmental airway mucous plugging. There is been interval near-complete resolution of the previously seen subpleural nodular opacity in the left lower lobe with a few bandlike opacities in both lung bases likely representing subsegmental atelectasis or scar. There are patchy groundglass and consolidative opacities in the right middle and lower lobes, with a few patchy groundglass opacities seen within the left lower lobe. There is been interval development of a spiculated nodular opacity in the right lower lobe measuring up to 1.6 cm with a small area of cavitation (series 302 image 250). Few additional smaller areas of nodular opacity in the right lower lobe demonstrates central lucency which may be related to cavitation (series 302 image 208). The previously seen subpleural nodule in the medial right lower lobe is no longer visible. Mild biapical scarring is unchanged. UPPER ABDOMEN: Unremarkable. MUSCULOSKELETAL: No suspicious osteolytic or osteoblastic lesions. Procedure Note Haja Fabian DO - 09/30/2019 EXAM: CT CHEST WITH IV CONTRAST CLINICAL HISTORY: larynx cancer; COMPARISON: Multiple priors, most recent February 26, 2019 TECHNIQUE: Multidetector CT imaging was obtained through the chest in thesupine position without intravenous contrast. The images werereconstructed with 5 and 1 mm collimation. Additional axial MIP imageswere reconstructed. FOV: 32 cm FINDINGS: LOWER NECK: Please see the separate CT neck dictation from the same dayfor details. HEART: The heart is normal in size. No significant pericardial effusion.Severe calcified plaque/stents in the right ureter is within the coronaryarteries. Mitral annular calcifications. THORACIC AORTA: Normal caliber and contour. Usual 3-vessel branchconfiguration of a left aortic arch. There are scattered calcifiedatherosclerotic plaques noted throughout the aorta and its branches. PULMONARY ARTERIES: Normal in caliber. MEDIASTINUM AND JONATHAN: No pathologically enlarged lymph nodes areidentified. CHEST WALL AND AXILLA: An internal jugular approach port catheter tipterminates in the SVC. Stimulator leads are present within the spinalcanal. PLEURA: No pleural effusions or pneumothorax. AIRWAYS & LUNGS: The central airways are patent. There are scattered areasof subsegmental airway mucous plugging. There is been intervalnear-complete resolution of the previously seen subpleural nodular opacityin the left lower lobe with a few bandlike opacities in both lung baseslikely representing subsegmental atelectasis or scar. There are patchygroundglass and consolidative opacities in the right middle and lowerlobes, with a few patchy groundglass opacities seen within the left lowerlobe. There is been interval development of a spiculated nodular opacityin the right lower lobe measuring up to 1.6 cm with a small area ofcavitation (series 302 image 250). Few additional smaller areas of nodularopacity in the right lower lobe demonstrates central lucency which may berelated to cavitation (series 302 image 208). The previously seensubpleural nodule in the medial right lower lobe is no longer visible.Mild biapical scarring is unchanged. UPPER ABDOMEN: Unremarkable. MUSCULOSKELETAL: No suspicious osteolytic or osteoblastic lesions. IMPRESSION: Near complete resolution of subpleural masslike consolidation in the leftlower lobe with residual scarring/atelectasis. Patchy groundglass and consolidative opacities in both lower lobes,improved on the left but worse on the right, with interval development ofa spiculated and partially cavitary nodule in the right lower lobe asdescribed above, compatible with an infectious/inflammatory etiology, toinclude aspiration pneumonitis. Subpleural nodule in the medial right lower lobe is no longer visible, andwas likely infectious/inflammatory. Report Verified by: Haja Fabian DO at 09/30/2019 3:19 PM EST Wood Win MD IMG CT ORDERABLES Final Re sult from Last 3 Months or Most Recently Relevant to Health Maintenance Insurance MEDICAID [place] [employer] MEDICARE HMO COMPLETE Care Teams Credit Products Officer Relationship Specialty Start Date End Date Kristy Feliz MD PCP - General Family Medicine 06/28/16
--- OUTSIDE RECORDS SUMMARY | 2025-08-24 10:50 | XMS_ITS | Data Portability ---
Author Organization [place] - [facility] BENJAMIN ADMIN Address [address] [place] [address] Care Team Providers Care Aircraft Stress Analyst Name Role Phone HE ACEVEDO Primary Care Provider [phone] HE ACEVEDO Primary Care Provider Assessment No assessment recorded. Plan of Treatment Reminders Order Date Submit Date Provider Last Modified By Organization Details Last Modified Time Details Appointments None recorded. Lab None recorded. Referral None recorded. Procedures esophagoga stroduoden oscopy with biopsy (PROC) - PHYSICIAN ORDERS 1. Ensure patient is NPO. 0.9% normal saline @kvo preferably in right arm; IV patent to gravity. 3. verify consent. EGD with possible biopsy with possible dilation. 4. On-Call to Endoscopy. 5. Draw pt/inr if patient on Coumadin Hold 2023 024 [email or web address] 3 [facility] (Outpatient Surgery)[address] , [place], [address], 4 13:25:21 Surgeries None recorded. Imaging None recorded. Medication Orders TwoCal HN 0.08 gram-2 kcal/mL oral liquid 2023 [email or web address], [address], 4 12:23:45 omeprazole 40 mg capsule,de layed release 2023 024 [email or web address] [address], [address], 4 13:14:38 TwoCal HN 0.08 gram-2 kcal/mL oral liquid 2022 023 J[facility] [address] [place], [address], 3 15:58:41 Patient TargetsNo targets recorded. Patient InstructionsNo instructions recorded. Reason for Referral None Reported. Problems Name Problem SNOMED Code Status Onset Date Resolution Date Notes Provider Name and Address Organization Details Recorded Time Constipation alternates with diarrhea 470600699 Active 2022 Lincoln Monae MD [address] [place] [address],[address] [place] [address], [address], [place] - [facility] - [place] & [place] 3 11:24:27 Anemia 458206444 Active 2022 macho isabel [facility], [place] - [facility] - [place] & [place] 3 12:17:47 Nutritional disorder 5890347 Active 2022 Lincoln Monae MD [address] [place] [address],[address], [place], [address], [place] - [facility] - [place] & [place] 3 15:58:37 Malfunction of gastrostomy tube 747470684 Active 2022 Lincoln Monae MD [address] [place] [address],[address], [place], [address], [place] - [facility] - [place] & [place] 3 13:45:18 Gastroesophage al reflux disease without esophagitis 589181413 Active 2023 Lincoln Monae MD [address] [place] [address],[address], [place], [address], [place] [facility] [place] & [place] 4 14:42:19 Epigastric pain 80904072 Active 2023 Lincoln Monae MD [address] [place] [address],[address], [place], [address], [place] [facility] [place] & [place] 4 13:38:29 Near syncope 242835057 Active 2023 Lincoln Monae MD [address] [place] [address],[place] [address], [place], [address] [facility] [place] - [facility] - [place] & [place] 4 16:24:11 Problem Notes None recorded. Procedures Surgical History Date Name Laterality Status Provider Name and Address Organization Details Recorded Time 2022 Date of Last Colonoscopy completed Chris WEBB - [facility] - [facility] & [place] 3 15:11:31 2022 esophagogastroduodenoscopy completed Ga Mcintyre [place] - [facility] & [place] 3 10:21:13 2021 Most Recent Bone Density completed Chris WEBB - [facility] - [facility] & [place] 3 15:11:31 2021 completed Chris WEBB - [facility] & [place] 3 15:11:31 2018 operation on lumbar spine completed July WEBB - [facility] & [place] 3 17:34:14 2017 EGD/Endoscopy completed Rowan WEBB - [facility] & [place] 3 11:09:56 2016 replacement of mitral valve completed Teresa WEBB - [facility] & [place] 3 17:32:09 2011 Total knee arthroplasty completed Rowan WEBB - [facility] - [facility] & [place] 3 10:43:19 2009 Total knee arthroplasty completed Rowan WEBB - [facility] - [facility] & [place] 3 10:43:05 2007 Colonoscopy completed Rowan WEBB - [facility] - [place] & [place] 3 10:43:58 2007 Colonoscopy completed Rowan WEBB - [facility] - [place] & [place] 3 10:44:48 Pacemaker completed July WEBB - [facility] - [facility] & [place] 3 17:32:53 placement of gastros eileen tube completed Jina Stevens [facility] & [place] 2 11:04:59 Imaging Results None recorded. Procedure Notes None recorded. Medical Equipment None Reported. Allergies Allergen ID Allergen Name Allergen Category Reaction Reaction Severity Criticality Documentation Date Start Date Code Code System Note Provider Name and Address Organization Details Recorded Time 09842 fentanyl medicatio n nausea Not available Not available 04/13/2023 4337 RxNorm Chris julian TRACEY RIDDLE [facility] & [place] 3 10:18:34 Medications Name Sig Start Date Stop Date Status Note LastModified by Organization Details LastModified Time quetiapine 25 mg tablet TAKE 1 TABLET BY MOUTH EVERY DAY active Not Available Not Available No t Available celecoxib 200 mg capsule TAKE ONE (1) CAPSULE BY MOUTH EVERY DAY active Not Available Not Available No t Available tolterodine ER 2 mg capsule,ext ended release 24 hr TAKE ONE (1) CAPSULE BY MOUTH EVERY DAY active Not Available Not Available No t Available amoxicillin 500 mg capsule TAKE FOUR (4) CAPSULES BY MOUTH DIRECTED; TAKE ALL FOUR CAPSULES ONE FULL HOUR PRIOR TO DENTAL APPT 12/20 completed Not Available Not Available Not Available atorvastati n 40 mg tablet 1 tablet every day by oral route. active Not Available Not Available No t Available nitrofurant oin macrocrysta l 50 mg capsule TAKE ONE (1) CAPSULE BY MOUTH DAILY TAKE WITH FOOD active Not Available Not Available No t Available atorvastati n 20 mg tablet TAKE 1 TABLET BY MOUTH EVERY DAY active Not Available Not Available No t Available alprazolam 1 mg tablet TAKE 1 TABLET BY MOUTH THREE (3) TIMES DAILY NEEDED ANXIETY active Not Available Not Available No t Available Lidocaine Viscous 2 % mucosal solution AFTER mixing SWISH AND EXPECTORA TE 1 TEASPOONF UL (5 ML) BY MOUTH THREE TIMES DAILY DIRECTED 05/15 completed Not Available Not Available Not Available ofloxacin 0.3 % eye drops LOCATION: RIGHT EYE. ONE (1) DROP INTO THE RIGHT EYE FOUR (4) TIMES DAILY FOR 7 DAYS 04/13 completed Not Available Not Available Not Available sucralfate 100 mg/mL oral suspension TAKE 10ML BY MOUTH BEFORE MEALS AND AT BEDTIME active Not Available Not Available No t Available ondansetron HCl 8 mg tablet TAKE ONE (1) TABLET ORALLY EVERY 8 HOURS NEEDED FOR NAUSEA AND VOMITING active Not Available Not Available No t Available donepezil 10 mg tablet TAKE 1 TABLET BY MOUTH EVERY DAY FOR DEMENTIA active Not Available Not Available No t Available ondansetron HCl 4 mg tablet TAKE 1 TABLET BY MOUTH EVERY SIX (6) HOURS NEEDED FOR NAUSEA AND VOMITING 10/18 completed Not Available Not Available Not Available oxycodone 5 mg/5 mL oral solution TAKE 10 ML ORALLY EVERY SIX (6) HOURS NEEDED FOR PAIN active Not Available Not Available No t Available diphenoxyla te-atropine 2.5 mg-0.025 mg tablet TAKE 1 TABLET BY MOUTH TWICE DAILY NEEDED FOR DIARRHEA active Not Available Not Available No t Available metronidazo le 500 mg tablet TAKE ONE (1) TABLET BY MOUTH EVERY 8 HOURS FOR 14 DAYS. 04/13 completed Not Available Not Available Not Available clopidogrel 75 mg tablet TAKE 1 TABLET BY MOUTH EVERY DAY active Not Available Not Available No t Available ciprofloxac in 500 mg tablet TAKE 1 TABLET BY MOUTH TWICE DAILY 09/20 completed Not Available Not Available Not Available sulfamethox azole 800 mg-trimetho prim 160 mg tablet TAKE 1 TABLET BY MOUTH TWICE DAILY active Not Available Not Available No t Available omeprazole 40 mg capsule,del ayed release Take 1 capsule every day by oral route. active Not Available Not Available No t Available vancomycin 125 mg capsule TAKE ONE CAPSULE FOUR (4) TIMES DAILY FOR 10 DAYS 10/18 completed Not Available Not Available Not Available diazepam 5 mg/5 mL (1 mg/mL) oral solution TAKE 5MG (5 ML) BY MOUTH THREE TIMES A DAY NEEDED FOR ANXIETY active Not Available Not Available No t Available potassium chloride 20 mEq/15 mL oral liquid TAKE 15 ML BY MOUTH EVERY DAY FOR SUPPLEMEN T 10/18 completed Not Available Not Available Not Available alendronate 35 mg tablet TAKE ONE (1) TABLET BY MOUTH EVERY WEEK FOR SUPPLEMEN T active Not Available Not Available No t Available zinc sulfate 50 mg zinc (220 mg) tablet TAKE ONE (1) TABLET BY MOUTH TWICE DAILY 10/18 completed Not Available Not Available Not Available levothyroxi ne 88 mcg tablet TAKE 1 TABLET BY MOUTH DAILY FOR HYPOTHYRO IDISM active Not Available Not Available No t Available triamcinolo ne acetonide 0.1 % dental paste APPLY ONE (1) APPLICATI ON TO DENTAL AREA ONE (1) TO THREE (3) TIMES DAILY NEEDED FOR MOUTH IRRITATIO N; USE AFTER FOOD AND/OR DRINK AND/OR ORAL HYGIENE active Not Available Not Available No t Available trazodone 100 mg tablet TAKE 1 TABLET BY MOUTH EVERY NIGHT AT BEDTIME 10/18 completed Not Available Not Available Not Available dicyclomine 20 mg tablet 1 tablet 3 times a day by oral route. 09/14 completed Not Available Not Available Not Available amoxicillin 250 mg/5 mL oral suspension TAKE 10 ML THREE (3) TIMES DAILY FOR 10 DAYS 04/17 completed Not Available Not Available Not Available pantoprazol e 40 mg tablet,german yed release TAKE 1 TABLET BY MOUTH EVERY DAY FOR ACID REFLUX 2023 active Not Available Not Available Not Avai lable erythromyci n 5 mg/gram (0.5 %) eye ointment APPLY 1/4 INCH TO right eye THREE TIMES DAILY FOR 7 DAYS THEN STOP 09/14 completed Not Available Not Available Not Available cyanocobala min (vit B-12) 1,000 mcg/mL injection solution INJECT 1ML INTO THE MUSCLE EVERY TWO (2) WEEKS active Not Available Not Available No t Available cephalexin 250 mg/5 mL oral suspension TAKE 250 MG (5 ML) ORALLY THREE TIMES A DAY FOR 10 DAYS. DISCARD REMAINDER 04/12 completed Not Available Not Available Not Available fluorometho lone 0.1 % eye drops,suspe nsion LOCATION: RIGHT EYE. ONE (1) DROP INTO THE RIGHT EYE TWICE DAILY FOR 14 DAYS THEN STOP 09/17 completed Not Available Not Available Not Available sulfamethox azole 200 mg-trimetho prim 40 mg/5 mL oral suspension 09/17 completed Not Available Not Available Not Available omeprazole 20 mg capsule,del ayed release TAKE 1 CAPSULE BY MOUTH EVERY DAY active Not Available Not Available No t Available aspirin 81 mg chewable tablet TAKE 1 TABLET BY MOUTH EVERY DAY 04/12 completed Not Available Not Available Not Available pravastatin 20 mg tablet TAKE 1 TABLET BY MOUTH EVERY NIGHT AT BEDTIME FOR CHOLESTER OL 10/18 completed Not Available Not Available Not Available mupirocin 2 % topical ointment apply ONE (1) APPLIC TOPICALLY THREE TIMES A DAY 05/15 completed Not Available Not Available Not Available furosemide 20 mg tablet TAKE 1 TABLET BY MOUTH EVERY DAY 10/18 completed Not Available Not Available Not Available gabapentin 100 mg capsule TAKE 1 CAPSULE BY MOUTH AT BEDTIME NIGHTLY NEEDED FOR PAIN IN FEET active Not Available Not Available No t Available Diazepam Intensol 5 mg/mL oral concentrate TAKE 1ML BY MOUTH THREE (3) TIMES DAILY active Not Available Not Available No t Available ergocalcife rol (vitamin D2) 1,250 mcg (50,000 unit) capsule TAKE 1 CAPSULE BY MOUTH EVERY WEEK active Not Available Not Available No t Available diazepam 10 mg tablet TAKE 1 TABLET BY MOUTH THREE (3) TIMES DAILY NEEDED FOR ANXIETY active Not Available Not Available No t Available levofloxaci n 500 mg tablet TAKE 1 TABLET BY MOUTH EVERY DAY 10/18 completed Not Available Not Available Not Available sertraline 20 mg/mL oral concentrate TAKE 1ML BY MOUTH EVERY DAY active Not Available Not Available No t Available fluoxetine 20 mg capsule TAKE 1 CAPSULE BY MOUTH EVERY DAY active Not Available Not Available No t Available Diphedryl 12.5 mg/5 mL oral liquid 09/17 completed Not Available Not Available Not Available azithromyci n 500 mg tablet TAKE 1 TABLET BY MOUTH EVERY DAY FOR THREE (3) DAYS active Not Available Not Available No t Available hydrocodone 7.5 mg-acetamin ophen 325 mg/15 mL oral solution TAKE 15 ML BY MOUTH EVERY EIGHT (8) HOURS 10/18 completed Not Available Not Available Not Available nitrofurant oin monohydrate /macrocryst als 100 mg capsule TAKE 1 CAPSULE BY MOUTH DAILY MUST TAKE WITH A MEAL/FOOD active Not Available Not Available No t Available duloxetine 60 mg capsule,del ayed release TAKE ONE (1) CAPSULE BY MOUTH EVERY DAY active Not Available Not Available No t Available cefdinir 250 mg/5 mL oral suspension TAKE SIX (6) ML BY MOUTH TWICE DAILY FOR 10 DAYS.DISC ROBEL ANY REMAINDER 04/17 completed Not Available Not Available Not Available BD Integra Syringe 3 mL 25 gauge x 5/8 USE TO INJECT VIT B-12 FOR SUPPLEMEN T 09/19 completed Not Available Not Available Not Available ProAir HFA 90 mcg/actuati on aerosol inhaler INHALE TWO (2) INH INHALATIO N EVERY 4-6 HOURS NEEDED FOR SHORTNESS OF BREATH OR WHEEZING active Not Available Not Available No t Available Symbicort 160 mcg-4.5 mcg/actuati on HFA aerosol inhaler INHALE TWO (2) PUFF INHALATIO N TWICE DAILY FOR ASTHMA active Not Available Not Available No t Available oxycodone 10 mg tablet TAKE 1 TABLET FOUR (4) TIMES DAILY NEEDED FOR PAIN PLEASE CRUSH AND GIVE THROUGH G-TUBE 10/18 completed Not Available Not Available Not Available TwoCal HN 0.08 gram-2 kcal/mL oral liquid 1 carton tid per tube 09/19 completed Not Available Not Available Not Available Dificid 200 mg tablet TAKE ONE TABLET BY MOUTH TWO TIMES DAILY 10/18 completed Not Available Not Available Not Available Antacid-Ant igas 200 mg-200 mg-20 mg/5 mL oral suspension AFTER mixing SWISH AND EXPECTORA TE 1 TEASPOONF UL (5 ML) BY MOUTH THREE TIMES DAILY DIRECTED 05/12 completed Not Available Not Available Not Available Clenpiq 10 mg-3.5 gram-12 gram/160 mL oral solution 160 ML ORALLY DAILY FOR TWO (2) DOSES; TAKE FIRST DOSE AT 5-9PM EVENING BEFORE COLONOSCO PY; 2ND DOSE THE NEXT DAY APPROXIMA TELY FIVE (5) HRS BEFORE COLONOSCO PY 12/19 completed Not Available Not Available Not Available ICaps AREDS2 (copper citrate) 250 mg-200 unit-12.5 mg-1 mg chew tablet Take 1 tablet every day by oral route. active Not Available Not Available No t Available Clenpiq 10 mg-3.5 gram-12 gram/175 mL oral solution 160 ML ORALLY DAILY FOR TWO (2) DOSES; TAKE FIRST DOSE AT 5-9PM EVENING BEFORE COLONOSCO PY; 2ND DOSE THE NEXT DAY APPROXIMA TELY FIVE (5) HRS BEFORE COLONOSCO PY 12/19 completed Not Available Not Available Not Available Vitals Date Recorded Body height Body mass index (BMI) Body weight Body temperature Heart rate Systolic And Diastolic Provider Name and Address Organization Details Last Updated DateTime 4 167.64 cm 17.4 kg/m2 50252.9 8 g 97.4 [degF] 84 /min 108/60 mm[Hg] Suri WEBB - [facility] - [place] & [place] 4 14:17:08 Date Recorded Body height Body mass index (BMI) Body weight Body temperature Heart rate Respiratory rate Systolic And Diastolic Provider Name and Address Organization Details Last Updated DateTime 4 167.64 cm 16 kg/m2 76282.3 6 g 97.9 [degF] 60 /min 14 /min 102/50 mm[Hg] Rowan Jarrett [facility] & [place] 4 13:11:45 Date Recorded Body height Heart rate Respiratory rate Systolic And Diastolic Systolic And Diastolic Provider Name and Address Organization Details Last Updated DateTime 4 167.64 cm 60 /min 14 /min 94/48 mm[Hg] 106/60 mm[Hg] July Yee [facility] & [place] 4 15:25:56 Date Recorded Body height Body mass index (BMI) Body weight Respiratory rate Heart rate Body temperature Systolic And Diastolic Provider Name and Address Organization Details Last Updated DateTime 3 167.64 cm 17.6 kg/m2 10482.5 7 g 18 /min 69 /min 97.7 [degF] 138/61 mm[Hg] Chris Mcintyre [facility] & [place] 3 15:10:37 Date Recorded Body height Body temperature Body mass index (BMI) Body weight Heart rate Respiratory rate Systolic And Diastolic Provider Name and Address Organization Details Last Updated DateTime 3 167.64 cm 97.6 [degF] 17.8 kg/m2 16965.1 6 g 72 /min 14 /min 140/66 mm[Hg] Suri Jl [facility] & [place] 3 12:36:50 Social History Question Answer Notes LastModified by Organizat ion Details LastModified Time Tobacco Smoking Status Former Smoker Jina Maguire iesha [place] - [place] [facility] & [place] 10/18/2022 11:04:34 Do You Have An Advance Directive? No Information not available 09/17/2023 Are You Blind Or Do You Have Difficulty Seeing? Yes Information not available 09/17/2023 What Is Your Level Of Caffeine Consumption? None [email or web address] Information not available 09/20/2023 What Type Of Diet Are You Following? SPECIFIC G-tube Neutren 2.0 2 Cartons Daily [email or web address] Information not available 04/17/2024 What Was The Date Of Your Most Recent Tobacco Screening? 04/17/2024 [email or web address] Information not available 04/17/2024 Are You Passively Exposed To Smoke? No Information not available 09/17/2023 How Much Tobacco Do You Smoke? No Information not available 09/17/2023 How Many Years Have You Smoked Tobacco? 30 Information not available 09/17/2023 Sex: Unknown Functional Status Question Answer Note LastModified by Organizat ion Details LastModified Time Do you use any illicit or recreational drugs? No Information not available 04/13/2023 What is your level of alcohol consumption? None Information not available 04/13/2023 Do you or have you ever used smokeless tobacco? Never used smokeless tobacco Information not available 09/17/2023 What is your exercise level? Occasional Information not available 04/13/2023 Mental Status Question Answer Note LastModified by Organization D etails LastModified Time Do you feel stressed (tense, restless, nervous, or anxious, or unable to sleep at night)? [id number] Information not available 09/17/2023 Family History Relationship Description Onset Age of this Age Resolved Age Notes LastModified by Organization Details LastModified Time Father Heart disease [email or web address] Not available 17:26:10 Mother Alzheimer's disease [email or web address] Not available 2023 12:51:06 Mother Family history of blood coagulation disorder [email or web address] Not available 2023 12:51:06 Mother Chronic back pain [email or web address] Not available 2023 12:51:06 Maternal Grandmother Dementia [email or web address] Not available 04/17 12:51:06 Maternal Grandfather History of cancer of floor of mouth [email or web address] Not available 2023 12:51:06 Brother Myocardial infarction [email or web address] Not available 17:28:45 Brother Chronic back pain [email or web address] Not available 2023 12:51:06 Sister Chronic back pain [email or web address] Not available 2023 12:51:06 Sister Chronic back pain [email or web address] Not available 2023 12:51:07 Sister Hypoglycemia [email or web address] Not availab le 04/17/2024 12:51:07 Medical History Condition Response Coronary Artery Disease Y None N Gout N Colon Cancer N Kidney Stones N Hyperthyroidism N Ear or Hearing Problems Y Thyroid Problems Y Depression Y COPD Y GI Problems Y Hypothyroidism Y Osteoporosis/Osteopenia Y Diverticulitis/Diverticulosis N Colon Polyps Y Spine Problems Y Anxiety Disorder Y Diabetes N Bleeding Disorder Y Vision or Eye Problems Y Arthritis Y Seizures/Epilepsy N Tuberculosis N Hyperlipidemia N Cancer Y Back Problems N Stroke N Asthma N Reflux/GERD Y Sleep Apnea Y High Cholesterol Y GERD/Reflux N Hepatitis N Liver Disease N Cirrhosis N Heart Disease Y Rheumatoid Arthritis Y Headaches N Hypertension N Kidney Disease N Gynecological History Statement/Question Response Abnormal Pap Y Date of Last Colonoscopy 09/06/2023 03/26/2022 Most Recent Bone Density 05/26/2022 Sexually Active? N Menses Monthly N Current Control Method None Obstetrics History GPAL:G 0 P 0 0 0 0 Immunizations Vaccine Type Date Status Note Provider Nam e and Address Organization Details Recorded Time Novel [id number], all formulations 0 completed July Yee null, [place] - [facility] - [place] & [place] 04/12/2023 16:53:58 influenza, unspecified formulation 2 completed July Yee null, [place] [facility] [place] & [place] 04/12/2023 16:56:55 influenza, unspecified formulation 9 completed July Yee null, [place] [facility] [place] 04/12/2023 16:58:34 Pneumococcal Conjugate, unspecified formulation 6 completed July Yee null, [place] [facility] [place] [facility] [place] 04/12/2023 16:59:18 pneumococcal polysaccharide PPV23 4 completed July Yee null, [place] [facility] [place] 04/12/2023 17:00:25 SARS-COV-2 (COVID-19) vaccine, UNSPECIFIED 1 completed Chris Mcintyre null, [place] - [facility] [place] & [place] 05/15/2023 13:15:53 SARS-COV-2 (COVID-19) vaccine, UNSPECIFIED 1 completed Chris julian, TRACEY RIDDLE [facility] & [place] 05/15/2023 13:16:02 SARS-COV-2 (COVID-19) vaccine, UNSPECIFIED 1 completed Chris julian, TRACEY RIDDLE [facility] & [place] 05/15/2023 13:16:12 SARS-COV-2 (COVID-19) vaccine, UNSPECIFIED 2 completed Chris julian, TRACEY RIDDLE [facility] & [place] 05/15/2023 13:16:21 SARS-COV-2 (COVID-19) vaccine, UNSPECIFIED 3 completed Chris julian, TRACEY RIDDLE [facility] & [place] 05/15/2023 13:16:34 Past Encounters Encounter ID Performer Location Encounter Start Date Encounter Closed Date Diagnosis/Indication Diagnosis SNOMED-CT Code Diagnosis ICD10 Code Diagnosis IMO Codes Diagnosis Note [id number] MD SKY [facility] [address] [place] [address],[address] [place] [address] 10/18/2022 10:51:47 10/18/2022 11:18:51 Malfunction of gastrostomy tube 659420438 K94.23 the gastrostom y tube was replaced. [id number] Lincoln Monae MD [facility] [address] [place] [address],[place] [address] 04/13/2023 09:40:44 04/13/2023 12:00:39 Constipation alternates with diarrhea 759614180 K59.00 this patient is referred today as a new consult regarding constipati on alternatin g diarrhea. The patient however has a complex prior medical history, and the patient's referring provider has forwarded non of the patient's prior records for review. 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 The patient has been seen by both GI, and ENT as well as Oncology. None of these records are received. Before we proceed with further evaluation and management of this patient's complex gastrointe stinal problems we will need records. With this in mind we will schedule the patient for a follow-up in 1 month in the interim we will obtain records from the patient's initial diagnosis, subsequent radiation therapy, chemothera py, endoscopic investigat ions and further recommenda tion will follow thereafter . [id number] Lincoln Monae MD [facility] [address] [place] [address] 05/15/2023 12:51:28 05/15/2023 14:06:58 Constipation alternates with diarrhea 807945103 K59.00 The patient has alternatin g diarrhea and constipati on is of long nature, in likely exacerbate d by her chronic tube feeds. Given the patient has periods of both severe diarrhea, and severe constipati on, starting the patient on either a pure antidiarrh eal agent, or laxative would likely lead to exacerbati on of 1 or the other of her complaints . We therefore would recommend that we review the patient's current tube feeding formulatio n, to see if there is a tube feed with a higher fiber content that might benefit this patient while maintainin g her adequate nutritiona lly. We had ordered lab work when we saw her last, which she has failed to acquire. These labs will be acquired today will refer the patient to dietitian for recommenda tion regarding tube feed formulatio n. [id number] Lincoln Monae MD [facility] [address] [place] [address],[address] [address] 09/17/2023 14:52:13 09/17/2023 15:55:52 Constipation alternates with diarrhea [id number] K59.00 the patient presents today in routine follow-up, since we have seen her last she has finally seen the dietitian who is recommende d a change to to count HN because of its higher fiber for her tube feeds an effort to improve her regularity . Nutritional disorder 249 2008 E46 Transition to TwoCal HN, the patient's feeding tube will need a replacemen t, we have asked patient to stop in tomorrow for 5 minutes to make feeding tube change once we get the replacemen t from [facility] [id number] Lincoln Monae MD [facility] [address] 09/20/2023 12:29:36 09/20/2023 13:19:52 Malfunction of gastrostomy tube [id number] K94.23 the patient has a tube that is leaking, the patient came into the office today just for a G-tube replacemen t, the old tube was removed after decompress ing the balloon, then an endo vive 20 Frisian ( 6.7 mm ) to was inserted through the tract easily, the new tubes balloon was inflated with 6 cc of water, tolerated well by the patient. Bumper pulled to approximat e the inter aspect of the patient's GI tract, external bumper brought to the skin surface. Patient was released to home to resume prior tube feeds. [id number] Lincoln Monae MD [address] [address] 12/20/2023 14:01:06 12/20/2023 14:39:43 Constipation alternates with diarrhea [id number] K59.00 significan tly improved since we have seen her last, the patient at this time is unable to state what medication she is taking, or what she needs refilled other than she needs omeprazole refilled. In regards to her diarrhea and constipati on until the patient calls us back with a list of what medication she is currently taking, we can not refill any medication s patient will call back when she knows what she is taking and if she needs refills of anything. Nutritional disorder 249 2008 E46 Stable on new tube feeds. This is improved the patient has alternatin g diarrhea and constipati on Gastroesop hageal reflux disease without esophagitis [id number] K21.9 continue omeprazole will refill this time [id number] Lincoln Monae MD [facility] [address] [place] [phone] 04/17/2024 12:42:45 04/17/2024 13:50:28 Constipation alternates with diarrhea [id number] K59.00 Nutritional disorder 249 2008 E46 Stable on new tube feeds. This has improved the patient has alternatin g diarrhea and constipati on Gastroesop hageal reflux disease without esophagitis [id number] K21.9 recently with increasing symptoms, however this was when the patient was off of 1 of her proton pump inhibitors , and currently she takes both omeprazole and pantoprazo le takes them within 2 hours of each other. This likely will significan tly decrease the potential benefit of these medication s. We therefore have instructed the patient to take her proton pump inhibitors 1 dose in the morning, 30 minutes before either p.o. or per feeding tube nutrition, 2nd dose 30 minutes before her evening meal or G-tube feeding. Epigastric pain [id number] R10.13 the patient complains of epigastric pain, and feels that this is been worse since her feeding tube was changed, the tube itself looks like it is functionin g well, given the discomfort noted would recommend EGD for evaluation . May need to come off Celebrex and or Fosamax based upon findings at time of endoscopy. Will also assess the patient's feeding tube at that time to see if there is any evidence of malfunctio n [id number] Lincoln Monae MD [facility] [address] [place] [address],[address] [phone] 05/13/2024 15:22:47 05/14/2024 07:56:12 Malfunction of gastrostomy tube [id number] K94.23 the patient has a tube that functionin g well, the patient merely needs to maintain the tube in appropriat e position. No abdominal pain. Reviewed the importance of maintainin g the external bumper against the abdominal wall. Near syncope [id number] R 55 The patient had a near syncopal episode when she went to use the bathroom prior to her visit, despite our recommenda tions that she go to the emergency room for evaluation she declined doing take that her blood pressure had returned to normal prior to her discharge in her pulse was regular and normal. The patient understand s that failure to follow-up to have this evaluated could lead to worsening of her medical condition. She continues to decline Health Concerns Section Related Observation LastModified by Organization Detai ls LastModified Time None Recorded Concern Status LastModified by Organization Details LastModified Time None Recorded Advance Directives Directive N: Payers Insurance Date Sequence Insurance Name Policy Number Policy Larkin Covered Member ID Larkin Member ID Guarantor Name 11/23/2023 1 [place] Elizabeth Bennett [id number] Elizabeth Schmitzciro 07/08/2024 1 [employer] (MEDICARE REPLACEMENT/A DVANTAGE - PPO) Elizabeth Schmitzciro [id number] Elizabeth Schmitzciro 11/23/2023 2 [facility] (MEDICARE REPLACEMENT/A DVANTAGE - PPO) Elizabeth Schmitzciro [id number] Elizabeth Schmitzciro 02/09/2025 1 [facility] (MEDICARE REPLACEMENT/A DVANTAGE - HMO) TRACEYDSNP Elizabeth Schmitzciro [id number] Elizabeth Schmitzciro 11/23/2023 2 [facility] PLAN - DUAL ELIGIBLE (MEDICARE REPLACEMENT/A DVANTAGE - HMO) TRACEYDSNP Elizabeth Schmitzciro [id number] Elizabeth Davilafilipe 02/09/2025 2 [place] [facility] - FFS/TRADITION AL Elizabeth Schmitzciro [id number] Elizabeth Davilafilipe 11/23/2023 1 [place] Elizabeth Bennett [id number] Elizabeth Davilafilipe 07/08/2024 1 [place] [facility] - FFS/TRADITION AL Elizabeth Davilafilipe [id number] Elizabeth Davilafilipe 02/10/2025 1 [employer] (MEDICARE REPLACEMENT/A DVANTAGE - HMO) Elizabeth Bennett [id number] Elizabeth Bennett Notes Date Note Type Note Provider Name and Address Organization Details Recorded Time 09/17/2023 text/html patient continues to be bothered by alternating diarrhea and constipation, the patient's weight remained stable. The patient has brought with her recommendations from the dietitian we asked to see the patient regards to a more optimal tube feed supplement with higher fiber content. The patient notes that she continues with alternating diarrhea and constipation. Interestingly the patient reports that she is scheduled for a colonoscopy later this week in [facility]. Lincoln Monae MD [address] [place] [address],[address], [place], [phone], [facility] - [place] & [place] 09/17/2023 15:59:35 09/20/2023 text/html Patient presents today for change of her G-tube, the patient is on chronic tube feeds due to her aspiration risk, the patient had a leak developed from her tube. When she saw her provider in [facility] yesterday at which time she underwent a colonoscopy she asked if they could change her tube they declined. She presents here for to change. Lincoln Monae MD [address] [place] [address],[address], [place], [phone], [facility] 09/20/2023 13:45:40 12/20/2023 text/html This 78-year-old female presents in follow-up. The patient has a prior medical history notable for feeding tube due to dysphagia symptomatology, when we saw her she was having alternating diarrhea and constipation that was quite severe we changed her formulation to 1 with more fiber she notes that it has improved the consistency of her stools and cut down on both the diarrhea and the constipation although she still occasionally will have diarrhea or constipation. The patient states that she needs a refill of her omeprazole today. The patient interestingly had a colonoscopy by another physician in [facility] since we saw her last results of that are unavailable. The patient denies any nausea or vomiting, has chronic pain diffusely through her body. No melena no bright red blood per rectum Lincoln Monae MD [address] [place] [address],[address], [place], [phone], [facility] & [place] 12/20/2023 14:44:05 04/17/2024 text/html this is a 78-year-old female presents in follow-up. The patient has new complaints of upper abdominal discomfort, the patient notes that a proximally 2 months ago she had some problems with her G-tube, she went to [place] with the tube was replaced. Since that time the patient has been bothered by increasing upper abdominal pain. It is unclear whether or not this symptoms actually started before that to change although the patient clearly focus is on the the patient has been on chronic tube feeds augmenting her poor nutritional input. The patient recently was placed back on twice a day proton pump inhibitor augmenting ongoing Carafate continues with burning discomfort in the upper abdomen worse when she takes an p.o.. Has associated heartburn. On questioning however the patient takes her proton pump inhibitor doses within 2 hours of each other, neither is associated with food intake continues with alternating diarrhea and constipation unchanged, this been going on ever since the patient has been on tube feeds has been refractory to multiple medical interventions. Lincoln Monae MD [address] [place] [address],[address], [place], [address], [facility] & [place] 04/17/2024 13:39:50 05/13/2024 text/html this is a 78-year-old female with a feeding tube in place due to poor p.o. intake, patient had a new feeding tube placed after an EGD proximally 2 weeks ago. The patient called yesterday reporting that it was leaking heavily, after nursing interviewed the patient until phone the patient was brought into check the tube. The patient apparently was under the impression although she has had a feeding tube for years that the external bumper should be as far from the abdominal wall was possible, once she moved the external bumper to the abdominal wall the leak resolved, the tube is in good position there was no difficulty. The patient denies any abdominal pain. The patient while waiting for her appointment went to use the bathroom had a near syncopal episode, upon returning to the office her blood pressure was checked which demonstrated a systolic pressure of 94. By the end of the visit, the patient reported that she was feeling back Lincoln Monae MD [address] [place] [address],[address], [place], [address], [place] [facility] & [place] 05/13/2024 16:25:17 OBGyn Episode No OBEpisode recorded.
--- OUTSIDE RECORDS SUMMARY | 2025-08-24 10:50 | XMS_ITS | Clinical Summary ---
Author Organization [facility] Address [address] [place] [id number] Care Team Providers Care Structural Ironworker Name Role Phone Andrew Quigley MD Primary Care Provider [phone] Xavier Rodriguez RACK PULLER Unavailable [phone] Allergies Active Allergy Reactions Criticality Noted Date Comments Fentanyl Vomiting 10/26/2023 Medications albuterol 108 (90 Base) mcg/puff inhaler INHALE TWO (2) INH INHALATION EVERY 4-6 HOURS NEEDED FOR SHORTNESS OF BREATH OR WHEEZING 2 Active alendronate (FOSAMAX) 35 MG TABS Take 35 mg by mouth. 2 Active aspirin 81 mg CHEW Chew 81 mg by mouth daily. 2 Active atorvastatin (LIPITOR) 20 MG TABS Take 20 mg by mouth daily. 2 Active CELEBREX 200 MG CAPS Take 200 mg by mouth daily. 2 Active clopidogrel (PLAVIX) 75 mg TABS Take 75 mg by mouth daily. 2 Active diazePAM 5 MG/5ML SOLN SMARTSI Milliliter(s) By Mouth Daily PRN 2 Active donepezil (ARICEPT) 10 MG TABS Take 10 mg by mouth daily. 2 Active DULoxetine (CYMBALTA) 60 MG CPEP Take 60 mg by mouth daily. 2 Active ergocalciferol (ERGOCALCIFERO L) 1.25 MG (45942 UT) CAPS Take 50,000 Units by mouth. Active levothyroxine (SYNTHROID, LEVOTHROID) 88 MCG TABS TAKE 1 TABLET BY MOUTH EVERY DAY FOR HYPOTHYROIDISM 2 Active nitrofurantoin (MACRODANTIN) 50 MG CAPS Take 50 mg by mouth. 2 Active omeprazole (PRILOSEC) 20 MG CPDR Take 20 mg by mouth daily. 2 Active ondansetron (ZOFRAN) 8 MG TABS SMARTSI Tablet(s) By Mouth Every 8 Hours PRN 2 Active oxycodone (ROXICODONE) 5 MG/5ML SOLN SMARTSI Milliliter(s) By Mouth Every 6 Hours PRN [address] (PROTONIX) 40 MG TBEC Take 40 mg by mouth daily. 2 Active pravastatin (PRAVACHOL) 20 MG TABS Take 20 mg by mouth nightly. 2 Active tolterodine (DETROL LA) 2 MG CP24 Take 2 mg by mouth daily. 2 Active traZODone (DESYREL) 100 MG TABS Take 100 mg by mouth at bedtime. 2 Active Active Problems No known active problems Social History Tobacco Use Types Packs/Day Years Used Date Smoking Tobacco: Former Cigarettes Smokeless Tobacco: Never Tobacco Cessation:Counseling Given: Not Answered Alcohol Use Standard Drinks/Week Comments Not Currently 0 (1 standard drink = 0.6 oz pur e alcohol) Food Insecurities Answer Date Recorded Worried about running out of food Not on file 12/17/2023 Food Bought Not on file 12/17/2023 Housing/Utilities Answer Date Recorded Worried about losing home Not on file 2023 Stayed outside house Not on file 12/17/2023 Unable to get utilities Not on file 12/17/19 Interpersonal Safety Answer Date Record ed Feel physically or emotionally unsafe where curr ently live Not on file 12/17/2023 Harm by anyone Not on file 12/17/2023 Emotionally Harmed Not on file 12/17/2023 Transportation Answer Date Recorded Worried about transportation Not on file Utilities Answer Date Recorded Worried about losing home Not on file 2023 Stayed outside house Not on file 03/31/2024 Unable to get utilities Not on file 03/31/20 24 Comments Unknown Sex and Gender Information Value Date Recorded Sex Assigned at Not on file Legal Sex Female 1:49 PM EDT Gender Identity Not on file Sexual Orientation Not on file Last Filed Vital Signs Vital Sign Reading Time Taken Comments Blood Pressure 110/80 01/04/2024 9:45 AM EST Pulse 80 01/04/2024 9:45 AM EST Temperature 36.4 C (97.5 F) 01/04/2024 9:45 AM EST Respiratory Rate 14 01/04/2024 9:45 AM EST Oxygen Saturation 95% 01/04/2024 9:45 AM EST Inhaled Oxygen Concentration - - Weight 51.3 kg (113 lb) 05/04/2023 10:05 AM EDT Height 167.6 cm (5' 6 ) 10/02/2022 10:33 AM EST Body Mass Index 18.24 10/02/2022 10:33 AM EST Plan of Treatment Health Maintenance Due Date Last Done Comments Hepatitis C Screening 1945 Shingrix (#1) 1996 DEXA Scan 2011 RSV Vaccine (60+ or ) (1 - 1-dose 75+ series) 2021 COVID-19 Vaccine ( season) 2025 12/06/2022, 03/22/2022, 08/24/2021, Additional history exists Influenza Vaccine (#1) 2025 , 10/12/2021, 09/07/2020, Additional history exists DTap,Tdap,and Td (2 - Td or Tdap) 11/12/2027 11/12/2017 Pneumococcal 50+ Completed 09/07/2020, , 05/10/2016, Additional history exists HPV Aged Out No longer eligi ble based on patient's age to complete this topic Meningococcal conjugate valent 4 (MCV4) Aged Out No longer eligible based on patient's age to complete this topic RSV Immunization (<20 months) Aged Out No longer eligible based on patient's age to complete this topic Insurance MEDICAID [facility] DUAL COMPLETE Care Teams Structural Ironworker Relationship Specialty Start Date End Date Andrew Quigley MD PCP - General Family Medicine 03/05/23 Xavier Rodriguez CNP Attending Physician 03/05/23
== END 2025-08-21 23:59 ==
LOC: LAB.DROPOF 08-24 10:44
PROVIDERS: PCP Family Medicine; Visit Provider Family Medicine
DX: R82.81 Pyuria (principal)
CPT/HCPCS: 87086; 87088; 87186